=== PATIENT | male | born 1960 ===

== ENCOUNTER 2022-10-10 10:00 | Outpatient (AMB) | payer MEDICAID, SELFPAY ==
--- NOTE | 2022-10-10 10:03 | A.OFFVIS_ITS ---
Intake Vital Signs 10/10/22 10:05 Height 5 ft 11 in Weight 196 lb BMI 27.3 BP 156/76 H Blood Pressure Location Lt brachial Position Sitting Respiration 14 Pulse 60 Pulse Source Pulse Oximeter Pulse Oximetry (%) 98 Oxygen Delivery Method Room Air Intake Visit Reasons: Chronic Right Lower Back Pain Head And Neck Surgeon Required: Yes Head And Neck Surgeon Name: prefers son to translate Allergies metronidazole [From Flagyl] Allergy (Severe, Verified 10/10/22 10:07) Redness of Skin Medication List - Last Reconciled 10/10/22 by Tabby Haas LPN aspirin (Adult Aspirin Regimen) 81 mg PO DAILY cyanocobalamin-methylcobalamin 5,000 mcg/mL drps sublingual fenofibrate nanocrystallized 145 mg PO DAILY fluticasone propionate 110 mcg/actuation (Flovent HFA) 1 puff inhalation BID montelukast 10 mg PO BEDTIME rosuvastatin 5 mg PO DAILY sucralfate 1 g PO BID HPI Chronic Right Lower Back Pain HPI Details 61-year-old male presenting today for a new patient evaluation of chronic right lower back pain. The patient is a Urdu speaking male. His son, who interpreted for him, was present during the visit. The patient has a longstanding history of chronic back pain with prior surgery (in 2009) in [place]. Based on reported sounds like he underwent a left L4-5 laminectomy/diskectomy with resolution of his left-sided symptoms at the time. His current pain episode started about two months ago, and is localized to the right side. He rates his pain at 10/10 in intensity, which radiates down to the right leg. His pain aggravates with walking, twisting, and standing. The patient has difficulty walking and sitting down due to pain. The pain is worse in the morning. He has tried acetaminophen and NSAIDs for his symptoms in the past, with mild relief. The patient visited Dr. Melissa, who recommended conservative management with potential consideration of surgical intervention in the future. The patient declined the surgical option pending further workup of his cardiac status in setting of prior history of episodic bradycardia associated with shortness of breath. He had tried physical therapy here and in [facility] without any benefit. He denies any history of diabetes mellitus or renal diseases. He has a known allergy to IV contrast. He had not tried gabapentin in the past. He is taking supplemental vitamin B12 for neuropathic pain at this time. Over the past few months he endorses increasing difficulty in using his right lower extremity with progressively worsening pain symptoms. [facility] Medical History (Updated 10/10/22 @ 10:32 by Edgardo Dent MD) Chronic right-sided low back pain with right-sided sciatica Review of Systems Const All systems reviewed & are unremarkable except as noted in HPI and below Physical Exam Vital Signs: Last Vital Signs Pulse 60 10/10/22 10:05 Resp 14 10/10/22 10:05 BP 156/76 H 10/10/22 10:05 Pulse Ox 98 10/10/22 10:05 Oxygen Delivery Method Room Air 10/10/22 10:05 BMI result Body Mass Index 27.3 General: Appears afebrile. Alert and oriented. Mood and affect appropriate. Follows and participates in conversation appropriately. Respiratory effort is unlabored. Able to transition from sit to stand unassisted. Ambulates with bilaterally normal heel strike and toe off. He is able to stand and walk on his toes and heels. He is able to rise from a squatting position with difficulty. Results Reviewed Results Reviewed: 09/23/21: MR LUMBAR SPINE WO. Assessment & Plan Assessment & Plan (1) Lumbar spinal stenosis: Code(s): M48.061 - Spinal stenosis, lumbar region without neurogenic claudication Plan Ordered a Repeat MRI scan of the lumbar spine given worsening pain and right lower extremity associated with weakness. We will review the MRI after it is done to assess candidacy for potential injection versus surgical intervention. The patient will receive a call to schedule an appointment. A script was also provided to the patient. The address and contact detail were also provided to the patient. Prescribed gabapentin 300 mg to the patient for pain management. Take 1 capsule at night for 1 week, if well tolerated increase it to 2 pills at night for a week, if well tolerated increase it to 3 pills at night. A referral was provided to Dr. Lynch for GERD symptoms per patient request for an Uzbek speaking provider. Scribed for Dr. Dent by Agustin Ya, medical records analyst, on 10/10/2022. I, Dr. Dent, have personally reviewed and agree with the information entered by the scribe. Orders: Orders MR lumbar spine wo con Today M48.061 - Spinal stenosis, lumbar region without neurogenic claudication Referrals Gastroenterology Referral K21.9 - Gastro-esophageal reflux disease without esophagitis Medications: New gabapentin 300 mg PO TID 90 caps 0RF Coding Level of Care Code New Pt Level 4 (19761) Diagnoses Lumbar spinal stenosis M48.061
[2022-10-10 10:05] VITALS: BP 156/76; PULSE 60; RESP 14; O2SAT 98; BMI 27.3
== END 2022-10-10 10:51 | disposition home or self-care (01) ==
PROVIDERS: PCP Nurse Practitioner; Visit Provider Internal Medicine
DX: M48.061 Spinal stenosis, lumbar region without neurogenic claudication (principal)
CPT/HCPCS: 99204

== ENCOUNTER → 2022-10-10 10:00 | Outpatient (BNVA) | payer MEDICAID, SELFPAY | PROVIDERS: PCP Nurse Practitioner; Visit Provider Internal Medicine | DX: M48.061 Spinal stenosis, lumbar region without neurogenic claudication (principal) | CPT/HCPCS: 99202 ==

== ENCOUNTER 2022-11-08 14:50 | Outpatient (REF) | payer MEDICAID, SELFPAY ==
--- NOTE | ~2022-11-08 | XR_ITS ---
EXAMINATION: XR LUMBOSACRAL SPINE WITH OBLIQUES CLINICAL INFORMATION: Radiculopathy COMPARISON: None available. TECHNIQUE: 4 views FINDINGS: Mild 2 mm posterior subluxation of L4 with respect to L3 and L5. Bone alignment is otherwise normal. There is no instability on flexion-extension views. There is degenerative spondylosis at T12-L1, L3-L4 and L4-L5. There is degenerative disc disease at L4-L5. There is lower lumbar spine facet arthritis. No fracture or dislocation. Mild atherosclerotic disease. XR/XR lumbar spine 4V min IMPRESSION: Mild 2 mm posterior subluxation of L4 with respect to L3 and L5. Stable on flexion-extension views. Degenerative changes.
== END 2022-11-08 14:51 | disposition home or self-care (01) ==
LOC: HO.HOSX 14:50
PROVIDERS: PCP Nurse Practitioner; Referring Provider Internal Medicine; Visit Provider Physician Assistant
DX: M54.16 Radiculopathy, lumbar region (principal)
CPT/HCPCS: 72110; 99212

== ENCOUNTER 2022-11-08 14:50 | Outpatient (AMB) | payer MEDICAID, SELFPAY ==
--- NOTE | 2022-11-08 15:23 | A.SPINEOV_ITS ---
Intake Intake Visit Reasons: low back pain Intake Note: Mr. Arechiga is here today c/o low back pain. MRI done @ [place]/brought disc. 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 Arechiga is following up here in the office today. I saw him last year at [facility], and evaluated him for a right leg radiculopathy. At that time he had had a history of a previous L4-5 decompression done in [place] in 2009 but the surgery was aborted midway through for what sounds like some kind of anesthesia complication. Fortunately at that time he had enough relief of the severe left leg pain that he was able to get along fairly well until a few years ago when he started to develop right leg pain which goes down his leg into his outer calf and ankle. When we saw him last year the symptoms were reasonably manageable and given his history of problems during his other surgery we generally were trying to avoid any major intervention. Unfortunately his symptoms have progressed and now he is getting severe right-sided leg pain as before but is also experiencing fatigue in both legs with cramping. He has been through physical therapy, ibuprofen and Tylenol as well as methocarbamol muscle relaxers without any relief. His new MRI at [facility] done just about a month ago shows similar findings to the imaging done at [facility] a year ago with severe collapse of the L4-5 disc space with postsurgical changes with ongoing lateral recess stenosis on the right as well as moderate to severe stenosis at L3-4. Since the patient is presenting with worsening progressive claudicating symptoms right greater than left, Dr. Melissa and I discussed the option of him undergoing right-sided approach for bilateral L3-4 decompression as well as a right L4-5 decompression. The patient wishes to proceed. He does have a degree of back pain, and we had a lengthy discussion about the fact that our current plan would not address his back pain but given that the leg pains are the primary carry all driver of his disability that this would be the goal of the surgery. At my urging last year, he did get a cardiac workup because of the history of the issues during anesthesia and he tells me this was done at [facility] and the results were his stress test was negative. Pt was given risk and benefits of surgery including but not limited to infection, hematoma , nerve injury,durotomy, weakness,bowel/bladder injury, persistent pain, need for spinal fusion down the road as well as the option to c ontinue with conservative treatment and patient wishes to proceed with surgery. Pt is aware they should stop their motrin, aspirin 7 days prior to surgery. All questions were answered to the best of our ability. If there is anything about this patients medical history that we have overlooked or concerns you have about us proceeding with surgery we would appreciate any input you can offer. Total amount of time spent in this visit was 20 minutes in discussion of symptoms, lumbar imaging results and subsequent plan of care Darryl Melissa MD,PhD [facility] Orders: Orders XR lumbar spine 4V min Today M54.16 - Radiculopathy, lumbar region Coding Level of Care Code Est Pt Level 3 (33994) Diagnoses Lumbar radiculopathy, chronic M54.16
== END 2022-11-08 16:38 | disposition home or self-care (01) ==
PROVIDERS: PCP Nurse Practitioner; Referring Provider Internal Medicine; Visit Provider Physician Assistant
DX: M54.16 Radiculopathy, lumbar region (principal)
CPT/HCPCS: 99213

== ENCOUNTER 2022-12-15 07:47 | Day surgery (SDC) | payer MEDICAID, SELFPAY ==
--- NOTE | 2022-12-02 | ECG_ITS ---
Test Reason : preop Blood Pressure : / mmHG Vent. Rate : 059 BPM Atrial Rate : 059 BPM P-R Int : 178 ms QRS Dur : 094 ms QT Int : 386 ms P-R-T Axes : 029 027 013 degrees QTc Int : 382 ms Sinus bradycardia Otherwise normal ECG No previous ECGs available Referred By: Giovanna Narayanan Electronically Signed By:BEVERLEY KIRKPATRICK
[2022-12-02 13:09] VITALS: BP 130/82; PULSE 64; RESP 18; O2SAT 98; BMI 28.0
--- NOTE | 2022-12-02 13:23 | HO.ANESPROP2 ---
Documented by User: Giovanna Narayanan NP 12/05/22 13:40 HPI - Anesthesia Eval Consult details Narrative: 61yo M for Right sided approach Bilateral L3-4, Right L4-5 Laminectomy Lumbar Decompression No recent illness No CP Mild SOB, tx inhalers and fresh air Rght nasal passage chronic obstruction Cardiac cleared. Hx of SB / junctional rhythm seen on holter. No pacer at this time because short episodes with good recovery to normal HR. Pt anxious re: hx of low HR during previous surgery in [facility] resulting in aborting procedure partway through. Dr Garcia in to see pt, reassured. [facility] Active Problems Active Problems: All Active Problems (Updated 12/02/22 @ 12:40 by Rosalina Florian RN) Lumbar radiculopathy, chronic (Acute) GERD (gastroesophageal reflux disease) (Acute) Lumbar spinal stenosis (Acute) Past Medical History Medical History (Updated 12/05/22 @ 13:42 by Giovanna Narayanan NP) CAD (coronary artery disease) Back pain GERD (gastroesophageal reflux disease) Fatty liver Depression Numbness Habitual snoring Wheezing SOB (shortness of breath) Elevated cholesterol HTN (hypertension) Chronic right-sided low back pain with right-sided sciatica Family History Family history of problems with anesthesia: No Surgical History Surgical History (Updated 12/02/22 @ 12:48 by Rosalina Florian RN) Hx of eye surgery Hx of hemorrhoidectomy History of lumbosacral spine surgery History of Problems with Anesthesia: Yes (low HR with previous spine surgery (aborted)) Social History Social History Are you a primary healthcare representative to a significant other at home: No Do you presently have visiting nurse or other home services: No Patient Tobacco Use Status: Current everyday Tobacco user Tobacco use type: Cigarette Cigarette Packs Per Day: 1.0 Cigarettes Per Day: 20.0 Years Smoked: 40 Meds Allergies Allergy/AdvReac Type Severity Reaction Status Date / Time metronidazole [From Flagyl] Allergy Severe Redness of Verified 12/15/22 08:13 Skin Home Medications Medication Instructions Recorded Confirmed Last Taken Type aspirin 81 mg tablet,delayed 81 mg PO DAILY 10/10/22 12/15/22 12/09/22 History release (Adult Aspirin Regimen) fenofibrate nanocrystallized 145 145 mg PO BEDTIME 10/10/22 12/15/22 Unknown History mg tablet montelukast 10 mg tablet 10 mg PO BEDTIME 10/10/22 12/02/22 Unknown History rosuvastatin 5 mg tablet 5 mg PO BEDTIME 10/10/22 12/02/22 Unknown History budesonide-formoterol HFA 160 2 puff inhalation BID 12/02/22 12/15/22 Unknown History mcg-4.5 mcg/actuation aerosol inhaler (Symbicort) calcium carbonate 600 mg-vitamin 1 tab PO DAILY 12/02/22 12/15/22 Unknown History D3 10 mcg (400 unit) tablet esomeprazole magnesium 20 mg 20 mg PO DAILY 12/02/22 12/15/22 Unknown History tablet,delayed release fluticasone propionate 50 1 spray intranasal DAILY 12/02/22 12/15/22 Unknown History mcg/actuation nasal spray,suspension loratadine 10 mg tablet 10 mg PO DAILY PRN Allergy Symptoms 12/02/22 12/15/22 Unknown History losartan 25 mg tablet 25 mg PO DAILY 12/02/22 12/15/22 Unknown History mecobalamin (vitamin B12) 500 mcg 500 mcg PO TID 12/02/22 12/02/22 Unknown History chewable tablet sucralfate 1 gram tablet 1 g PO BID 12/02/22 12/02/22 Unknown History Exam Exam Date and Time: December 02, 2022 1323 Height,Weight and Vital Signs: Height 5 ft 11 in Weight 91.172 kg Last Vital Signs Pulse 64 12/02/22 13:09 Resp 18 12/02/22 13:09 BP 130/82 12/02/22 13:09 Pulse Ox 98 12/02/22 13:09 O2 Del Method Room Air 12/02/22 13:09 Pertinent Lab Results Pertinent Lab Results: Labs from outside facility 11/15/22 Na 138 K 4.4 Cl 105 Bicarb 23 Bun 16 Creat 1.1 Liver profile and TSH WNL WBC 5.5 Hgb 13.0 Hct 40.3 Plt 192 Narrative Narrative: EKG 08/2022 NSR @ 60 EKG 11/2022 Vent. Rate : 059 BPM Atrial Rate : 059 BPM P-R Int : 178 ms QRS Dur : 094 ms QT Int : 386 ms P-R-T Axes : 029 027 013 degrees QTc Int : 382 ms Sinus bradycardia Otherwise normal ECG No previous ECGs available Stress ECHO 09/2022 Patient showed a fair to average functional capacity without chest pain No ischemic ST segment changes No RWMA seen following stress No echo evidence of exercise induced myocardial ischemia 3 day holter Predominate SR Min HR 41, Max HR 112, Avg HR 63 SVT lasting 4 beats with max of 160 Short episode of Junctional Rhythm Rare PACs and PVCs No pauses or high degree AV block PFT 10/2022 Nml Airway Mallampati Class: I TM Dist: >3cm Neck ROM: Full Loose/Missing/Broken Teeth: No (crowned molars) Heart: RR, daysi Lungs: CTAB Assessment and Plan Assessment Anesthesia Assessment: Anesthesia Plan Discussed, Smoking Cess. Discussed and PAT Visit Final Anesthetic Review Family History of Problems with Anesthesia: No History of Problems with Anesthesia: Yes (low HR with previous spine surgery (aborted)) Documented by User: Desmond Gallo MD 12/15/22 18:27 [facility] Past Medical History Medical History (Updated 12/05/22 @ 13:42 by Giovanna Narayanan NP) CAD (coronary artery disease) Back pain GERD (gastroesophageal reflux disease) Fatty liver Depression Numbness Habitual snoring Wheezing SOB (shortness of breath) Elevated cholesterol HTN (hypertension) Chronic right-sided low back pain with right-sided sciatica Surgical History Surgical History (Updated 12/02/22 @ 12:48 by Rosalina Florian RN) Hx of eye surgery Hx of hemorrhoidectomy History of lumbosacral spine surgery Social History Social History Are you a primary healthcare representative to a significant other at home: No Do you presently have visiting nurse or other home services: No Patient Tobacco Use Status: Current everyday Tobacco user Tobacco use type: Cigarette Cigarette Packs Per Day: 1.0 Cigarettes Per Day: 20.0 Years Smoked: 40 Meds Allergies Allergy/AdvReac Type Severity Reaction Status Date / Time metronidazole [From Flagyl] Allergy Severe Redness of Verified 12/15/22 08:13 Skin Home Medications Medication Instructions Recorded Confirmed Last Taken Type aspirin 81 mg tablet,delayed 81 mg PO DAILY 10/10/22 12/15/22 12/09/22 History release (Adult Aspirin Regimen) fenofibrate nanocrystallized 145 145 mg PO BEDTIME 10/10/22 12/15/22 Unknown History mg tablet montelukast 10 mg tablet 10 mg PO BEDTIME 10/10/22 12/02/22 Unknown History rosuvastatin 5 mg tablet 5 mg PO BEDTIME 10/10/22 12/02/22 Unknown History budesonide-formoterol HFA 160 2 puff inhalation BID 12/02/22 12/15/22 Unknown History mcg-4.5 mcg/actuation aerosol inhaler (Symbicort) calcium carbonate 600 mg-vitamin 1 tab PO DAILY 12/02/22 12/15/22 Unknown History D3 10 mcg (400 unit) tablet esomeprazole magnesium 20 mg 20 mg PO DAILY 12/02/22 12/15/22 Unknown History tablet,delayed release fluticasone propionate 50 1 spray intranasal DAILY 12/02/22 12/15/22 Unknown History mcg/actuation nasal spray,suspension loratadine 10 mg tablet 10 mg PO DAILY PRN Allergy Symptoms 12/02/22 12/15/22 Unknown History losartan 25 mg tablet 25 mg PO DAILY 12/02/22 12/15/22 Unknown History mecobalamin (vitamin B12) 500 mcg 500 mcg PO TID 12/02/22 12/02/22 Unknown History chewable tablet sucralfate 1 gram tablet 1 g PO BID 12/02/22 12/02/22 Unknown History Exam Airway Mallampati Class: II Loose/Missing/Broken Teeth: Yes (crowned molars) and No Assessment and Plan Assessment Anesthesia Assessment: Chart Reviewed Final Anesthetic Review NPO: Yes ASA Class: III Final Preanesthetic Review: Meds/Allgs Chart Reviewed, Consent Obtained/Reviewed and Anes Risks/Benef Reviewed Patient Risk: Intermediate Procedure Risk: Intermediate Anesthetic Plan Anesthetic Plan: GA and Agree w/ Assess. and Plan Disposition: Standard PACU
[2022-12-15] VITALS (7 sets, daily range): BP systolic 131–161; BP diastolic 60–84; PULSE 62–80; RESP 15–20; TEMP 36.5–36.9; O2SAT 96–100
--- NOTE | ~2022-12-15 | FL_ITS ---
EXAMINATION: XR FLUOROSCOPY WITH IMAGES CLINICAL INFORMATION: Right-sided, bilateral L3-L4, right L4-L5. COMPARISON: None available. TECHNIQUE: Fluoroscopy Supervised By: Dr. Pablo Melissa. Fluoroscopy Time: 0.0 minutes. Cumulative Dose: 1.77 mGy. DAP: 0.330 Gycm2. Images: 1. FINDINGS: Image demonstrates marker placement posterior to the L4-L5 disc space level. FL/FL guidance in OR IMPRESSION: Fluoroscopy guidance for lumbar spine surgery
--- NOTE | 2022-12-15 07:00 | P.HPSUR_ITS ---
Pre-Procedural Eval Section A Date of Service: 12/15/22 Section B Chief Complaint: Radiculopathy, lumbar region Allergies: Allergies Allergy/AdvReac Type Severity Reaction Status Date / Time metronidazole [From Flagyl] Allergy Severe Redness of Verified 10/10/22 10:07 Skin Review of Systems Sugical H&P ROS: Negative: Constitution, Cardiovascular, Respiratory, Neurological, Psychiatric, Hem-Onc, Allergic/Immunologic, Gastrointestinal, Genitourinary, Musculoskeletal, Integumentary, Endocrine and Eyes/Ears/Nose/Throat Exam Surgical H&P Exam: Not Evaluated: HEENT, Not Evaluated: Heart, Not Evaluated: Lungs, Not Evaluated: Extremities, Not Evaluated: Abdomen, Not Evaluated: Skin and Not Evaluated: Neurological Plan Diagnosis/Plan: Unchanged I have reviewed the history and physical and performed a pertinent physical examination on my patient. No changes have occurred unless specified. Plan remains the same right-sided approach bilateral L3-4 laminectomy, right- sided L4-5 laminectomy. Time Spent With Patient Time: Total time managing care of this patient today __10__ minutes.
--- OUTSIDE RECORDS SUMMARY | 2022-12-15 07:49 | XMS_ITS | Continuity of Care Document ---
Author Name Unknown Organization [facility] Address [address] [place] [id number]- Care Team Providers Care Scientific Informatics Analyst Name Role Phone Donald Bar MD Primary Care Physician [phone] Encounter [facility] Date(s): 03/29/22 - 04/28/22 [facility] [address] [address]- Attending Physician: Italia Hubbard Admitting Physician: AdmItalia orlando Referring Physician: Stevie Ar8 Note * Event Display: MRI Spine, Non- BH Authored Date: Patient Care team information Care Team Personnel Name: Donald Bar MD Position: [facility] Outreach Member Role: PCP Address: Address: [address] [place] [address]- Care Team Related Persons Name: JOHNNA JUAN Name: BUCKY JUAN
--- OUTSIDE RECORDS SUMMARY | 2022-12-15 07:49 | XMS_ITS | Continuity of Care Document ---
Author Name Unknown Organization [facility] Address [address] [place] [id number]- Care Team Providers Care Psychological Operations Name Role Phone Donald Bar MD Primary Care Physician Encounter [facility] Date(s): 11/17/21 - 12/23/21 [facility] [address] [address] Attending Physician: Lucina Sawyer MD Admitting Physician: Lucina Sawyer MD Patient Care team information Personnel Name: Donald Bar MD Address: Address: [address] [place] [address]
--- OUTSIDE RECORDS SUMMARY | 2022-12-15 07:49 | XMS_ITS | Continuity of Care Document ---
Author Name Unknown Organization [facility] Address [address] [place] [id number]- Care Team Providers Care Program Planner Name Role Phone Donald Bar MD Primary Care Physician Encounter [facility] Date(s): 11/23/21 - 12/23/21 [facility] [address] [id number] Attending Physician: Admtr, Ar8 Admitting Physician: Admtr, Ar8 Referring Physician: Admtr, Ar8 Patient Care team information Personnel Name: Donald Bar MD Address: Address: [address] [place] [address]
--- OUTSIDE RECORDS SUMMARY | 2022-12-15 07:49 | XMS_ITS | Continuity of Care Document ---
Author Name Unknown Organization [facility] Address [address] [place] [id number] Care Team Providers Care Applications Instructor Name Role Phone Donald Bar MD Primary Care Physician [phone] Encounter [facility] Date(s): 07/20/21 - 08/19/21 [facility] [address] [address]- Attending Physician: Italia Hubbard Admitting Physician: Italia Hubbard Referring Physician: Italia Hubbard
[2022-12-15] MEDS: Lactated Ringers 1,000 ML 100 ML IVCONT (08:31)
--- NOTE | 2022-12-15 11:45 | W.PM.OPN ---
Operative Note Operative Note Date of Service: 12/15/22 Narrative: Preoperative Diagnosis: L3-4 and L4-5 spinal stenosis/lateral recess stenosis/neuro foraminal stenosis Operation: L3-4 bilateral Laminotomy, Partial facetectomy and foraminotomy; right L4-5 laminotomy, partial facetectomy and foraminotomy with use of microscope Consent Informed Consent was obtained for this operation. I have explained the nature, purpose and benefits of the operation. I have discussed the risks and benefit of the operation including possible complications or adverse events with patient/family. Alternative(s) were discussed with the patient with their relative benefits and risks as well as the consequences of not accepting the operation were included in obtaining consent. Surgeon: SUZANNA AMIN MD, PHD Procedure Assisted By: Darryl Veliz Pac] Description of Procedure this 61-year-old male underwent a previous L4-5 decompression in [place]. The surgery had to be aborted due to bradycardia according to the patient. Patient complains of bilateral leg pain and back pain with the MRI showing ongoing severe lateral recess stenosis L4-5 compressing the right L5 nerve root and moderate to severe L3-4 central spinal stenosis.The patient was offered a decompression. The procedure and complications were explained. The patient was consented. The patient was brought to the operating room and endotracheally intubated. The patient was turned in prone position on the Nas frame. Prep and drape was done followed by timeout. The Physician senior underwriting assistant provided access. A mid lumbar incision was made followed by release of the paravertebral muscle On the right side to expose the L3, L4 and L5 laminae and facet joints. An intraoperative x-ray was obtained to confirm the correct level. The microscope was brought in. I took over the procedure. The high-speed drill was used to do a right L3-4 laminotomy until flavum ligament was reached. a 2. Kerrison was used to expand the laminotomy near flush to the pedicles and to include a partial facetectomy. The flavum and was opened and resected with a 3. Kerrison to decompress the underlying thecal sac. A fair amount of epidural fat was encountered, which had to be removed before the dura became visible. The spinous process was undercut and the patient was turned contralaterally in order for me to decompress the contralateral side. More flavum ligamentum bone was removed to decompress the bilateral L4 nerve roots in the lateral recesses.A long nerve hook could be easily passed along the medial side of the pedicles as a sign of adequate decompression. Then attention was turned to the L4-5 interspace. A right L4 laminotomy was done. Flavum ligament was opened and resected. A layer of scar tissue was removed to expose the underlying dura. The L5 nerve root was identified and decompressed in the lateral recess. The compression of the nerve consisted of flavum ligament and scar tissue. In the end good decompression of the L5 nerve root was obtained.The microscope was removed. Hemostasis was done. The physician senior underwriting assistant close the Incision in 2 layers. Steri-Strips were used to approximate incision. An OpSite with Tegaderm was used to cover the incision. All sponge needle counts were correct. Patient was extubated and transported in stable is to recovery room. Anesthesia: General Estimated Blood Loss (ml): Minimal Complications: None Duration of Surgery: 90 Minutes Postoperative Plan: Discharge to home
--- NOTE | 2022-12-15 12:09 | PM.DS ---
DS: Providers Provider Date of Service: 12/15/22 Date of discharge: 12/15/22 Primary care physician: Mireya Lyn NP Admitting clinician: Pablo Melissa DS: Summary Time Spent with Patient Time attestation: Total time managing care of this patient today ____ minutes. Discharge coordination time: Less than 30 minutes Quality: Safe Use of Opioids Does Pt have an Active Cancer Diagnosis on the Problem List?: No Quality: Stroke Does the patient have a stroke diagnosis?: No Physical Exam Vital Signs: Vital Signs: Last Vital Signs Temp 98.4 F 12/15/22 08:10 Pulse 66 12/15/22 08:10 Resp 16 12/15/22 08:10 BP 161/84 H 12/15/22 08:10 Pulse Ox 97 12/15/22 08:10 O2 Del Method Room Air 12/15/22 08:10 BMI result Body Mass Index 28.0 DS: Data Data Completed and Pending Labs on day of discharge: Laboratory Results - last 24 hr 12/15/22 08:12 Blood Type B Positive Antibody Screen NEGATIVE Discharge Plan Discharge Patient Disposition: Home, Self-Care Referrals: Mireya Lyn NP [Primary Care Provider] - 1 Week Discharge Medications: New oxycodone 5 mg tablet 5 mg PO Q4H PRN (Reason: pain) Qty: 20 0RF Rx Instructions: Partial Fill upon patient request. Continued sucralfate 1 gram tablet 1 g PO BID fluticasone propionate 50 mcg/actuation [place],Suspension 1 spray INTRANASAL DAILY Rx Instructions: administer into each nostril loratadine 10 mg Tablet 10 mg PO DAILY PRN (Reason: Allergy Symptoms) calcium carbonate-vitamin D3 600 mg-10 mcg (400 unit) tablet 1 tab PO DAILY budesonide-formoterol [Symbicort] 160-4.5 mcg/actuation HFA aerosol inhaler 2 puff inhalation BID esomeprazole magnesium 20 mg Tablet,Delayed Release (Dr/Ec) 20 mg PO DAILY losartan 25 mg tablet 25 mg PO DAILY mecobalamin (vitamin B12) 500 mcg Tablet,Chewable 500 mcg PO TID fenofibrate nanocrystallized 145 mg tablet 145 mg PO BEDTIME rosuvastatin 5 mg tablet 5 mg PO BEDTIME montelukast 10 mg tablet 10 mg PO BEDTIME aspirin [Adult Aspirin Regimen] 81 mg tablet,delayed release (DR/EC) 81 mg PO DAILY Discharge Orders: Discharge Order (Routine); Ordered 12/15/22 Ordered By: Darryl Veliz Diet: Advance to usual diet Activity on Discharge: As tolerated Activity Restrictions/Additional Instructions: After your spinal surgery we ask you to observe the following restrictions/guidelines: Activity: It is normal to feel some discomfort as you increase your activity, but that will improve with time. We ask you avoid heavy lifting or acitivities that cause pain. As a general rule, 8lbs is a safe limit for lifting right after surgery. Walk as much as you feel comfortable but not to exhaustion. You will feel extra tired the first few days after surgery. Stay well hydrated. It is OK to walk up and down stairs You may return to driving when you are off narcotics (such as vicodin, oxycodone, dilaudid, etc), and you are back to normal functional capacity. If you have any concerns please check with office before driving. Return to work is specific to each patient and each surgery, so please speak with your doctor/PA at first follow up. Please bring paperwork such as FMLA at that time if you need it filled out. Medications: For optimum pain control, it is best to start with a combination of 500 mg of Tylenol every 4 hours with 600 mg of Motrin every 8 hours, and use narcotics as needed in between for breakthrough pain. We will give you a short supply of narcotics after surgery (usually one weeks worth). If you need more please call the office but do not use more than prescribed. You will need to give our office 48 hours notice if you need narcotics refilled and we do not fill narcotics on weekends or evenings. If you are on a narcotic, it is a good idea to take a stool softener such as colace or senna to avoid constipation If you take blood thinner such as aspirin, Plavix, Coumadin, Effient, Eliquis etc for conditions such as Afib, DVT, Pulmonary embolus, coronary disease, stents etc please speak with your surgeon about specific details as to when you can resume these medications. You can resume NSAIDs on post op day 1 (eg: Motrin, Naproxen, etc). Follow up: Please call the office, , after surgery to arrange a 3 week follow up for wound check. Wound Care: You may remove your dressing on the first day after surgery. You may leave open to air. Please do not remove the steri strips underneath. they will fall off on their own in one week. IT IS NORMAL FOR THE WOUND TO OOZE OR BE BLOODY FOR A FEW DAYS AFTER SURGERY. IF THIS HAPPENS JUST PLACE NEW DRESSING OVER IT TO AVOID STAINING CLOTHES. You may shower on post op day # 1 We ask that you do not let the water soak the wound. If it does get wet, just towel dry lightly. Please do not scrub your incision or place any type of chemical/ointment on the wound. No tub baths, pools or jacuzzis for one month. If you have any leaking or redness from your wound, or fevers, please call office
== END 2022-12-15 14:10 | disposition home or self-care (01) ==
PROVIDERS: PCP Nurse Practitioner; Visit Provider Neurological Surgery
PROC: (CPT 63047; principal; 2022-12-15 09:40)
DX: M48.061 Spinal stenosis, lumbar region without neurogenic claudication (principal); M54.16 Radiculopathy, lumbar region; M54.50 Low back pain, unspecified; G89.29 Other chronic pain; M79.661 Pain in right lower leg; R20.0 Anesthesia of skin; I25.10 Atherosclerotic heart disease of native coronary artery without angina pectoris; I10 Essential (primary) hypertension; R06.83 Snoring; R06.2 Wheezing; Z79.51 Long term (current) use of inhaled steroids; Z79.82 Long term (current) use of aspirin; Z79.899 Other long term (current) drug therapy; Z88.8 Allergy status to other drugs, medicaments and biological substances; F17.210 Nicotine dependence, cigarettes, uncomplicated
CPT/HCPCS: 63047; 63048; 86850; 86900; 86901; 93005; J0131; J0690; J1100; J1885; J2250; J2405; J3010

== ENCOUNTER → 2022-12-15 07:47 | Outpatient (BNV) | payer MEDICAID, SELFPAY | PROVIDERS: PCP Nurse Practitioner; Visit Provider Neurological Surgery | DX: M48.061 Spinal stenosis, lumbar region without neurogenic claudication (principal); M54.16 Radiculopathy, lumbar region | CPT/HCPCS: 63047; 63048; 99499 ==

== ENCOUNTER 2023-01-06 14:59 | Outpatient (AMB) | payer MEDICAID, SELFPAY ==
--- NOTE | 2023-01-06 15:09 | HO.SPINEOV ---
Intake Intake Visit Reasons: 1st post op Intake Note: Mr. Arechiga is here today for his 1st post op visit. Lead Principal Technical Architect Required: Yes Lead Principal Technical Architect Name: Son Allergies metronidazole [From Flagyl] Allergy (Severe, Verified 12/15/22 08:13) Redness of Skin Assessment & Plan Assessment & Plan (1) Status post lumbar spine surgery for decompression of spinal cord: Code(s): Z98.890 - Other specified postprocedural states Plan Procedure: L3-4 bilateral Laminotomy; right L4-5 laminotomy Mary comes in today for his 1st postoperative visit. He reports he is very satisfied with the surgery and feels much better than he did preoperatively. The patient reports he is up walking around and completing the majority of his ADLs. He does report that he still has some nonspecific tingling of his left foot, accompanied by some aches in his right thigh. he does report good relief with jvay-vre-ihnaffa pain medication. He inquired about return to work guidelines, and stated that he would like to go back to [employer] [facility] [employer] [facility] [employer] as this is what he had done previously. 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 Mobility is intact. Sensation grossly intact. Patient is able to ambulate well, rises from a seated position without difficulty. Incision site is closed, well healing, with no signs of drainage. We will follow-up with the patient in 6 weeks for his 2nd postoperative visit. Percy Melissa MD,PhD [facility] Coding Level of Care Code Global (28167) Diagnoses Status post lumbar spine surgery for decompression of spinal cord Z98.890
== END 2023-01-06 15:38 | disposition home or self-care (01) ==
PROVIDERS: PCP Nurse Practitioner; Visit Provider Physician Assistant
DX: Z98.890 Other specified postprocedural states (principal)
CPT/HCPCS: 99024

== ENCOUNTER → 2023-01-06 14:59 | Outpatient (BNVA) | payer MEDICAID, SELFPAY | PROVIDERS: PCP Nurse Practitioner; Visit Provider Physician Assistant ==

== ENCOUNTER 2023-01-09 10:22 | Outpatient (AMB) | payer MEDICAID, SELFPAY ==
--- NOTE | 2023-01-09 10:30 | A.OFFVIS_ITS ---
Intake Vital Signs 01/09/23 10:40 Height 5 ft 9 in Weight 204 lb BMI 30.1 BP 129/60 Blood Pressure Location Lt brachial Position Sitting Pulse 66 Intake Visit Reasons: Gastroesophageal reflux disease (GERD) Intake Note: Patient new consult for GERD. Patient cc: GERD with burning sensation, lower abdominal pain, constipation on and off with any meats, and bloody hemorrhoids. Patient is been dx with Hpylori infection. Emt P Required: Yes Accompanied by: Son Allergies metronidazole [From Flagyl] Allergy (Severe, Verified 01/09/23 10:29) Redness of Skin Medication List - Last Reconciled 01/09/23 by Rachel Gee PA-C aspirin (Adult Aspirin Regimen) 81 mg PO DAILY budesonide-formoterol 160-4.5 mcg/actuation (Symbicort) 2 puffs inhalation BID calcium carbonate-vitamin D3 600 mg-10 mcg (400 unit) 1 tab PO DAILY esomeprazole magnesium 20 mg PO DAILY fenofibrate nanocrystallized 145 mg PO BEDTIME fluticasone propionate 50 mcg/actuation 1 spray intranasal DAILY loratadine 10 mg PO DAILY PRN losartan 25 mg PO DAILY mecobalamin (vitamin B12) 500 mcg PO TID montelukast 10 mg PO BEDTIME oxycodone 5 mg PO Q4H PRN rosuvastatin 5 mg PO BEDTIME sucralfate 1 g PO BID HPI HPI Comments History of Present Illness Details 62-year-old male referred with GERD- he says he has a long hx of H.pylori- treated a few years ago- He has waterbrash- nexium -fair control the acid- just started sucralfate is very beneficial. Appetite is good Bowels not consistent- He has had a colonoscopy about 20 years ago. He sees cardiology [facility] is not having any cardiac issues- occasional bradycardia Recent back surgery- did very well- His adult son-as present assists with his history/ interprets [facility], [facility] Medical History (Updated 01/09/23 @ 13:29 by Rachel Gee PA-C) Helicobacter pylori (H. pylori) CAD (coronary artery disease) Back pain GERD (gastroesophageal reflux disease) Fatty liver Depression Numbness Habitual snoring Wheezing SOB (shortness of breath) Elevated cholesterol HTN (hypertension) Chronic right-sided low back pain with right-sided sciatica Surgical History (Updated 01/09/23 @ 10:31 by Debbie Nguyen) History of back surgery Hx of eye surgery Hx of hemorrhoidectomy History of lumbosacral spine surgery Social History Are you a primary memory care director to a significant other at home: No Do you presently have visiting nurse or other home services: No Patient Tobacco Use Status: Current everyday Tobacco user Tobacco use type: Cigarette Cigarette Packs Per Day: 1.0 Cigarettes Per Day: 20.0 Years Smoked: 40 Review of Systems Const All systems reviewed & are unremarkable except as noted in HPI and below ENT Denies dizziness Card Denies chest pain and Denies dyspnea Resp Denies dyspnea GI Denies abdominal pain, Reports constipation, Reports heartburn, Denies diarrhea, Denies nausea and Denies vomiting Neuro Denies dizziness Physical Exam Vital Signs: Last Vital Signs Pulse 66 01/09/23 10:40 BP 129/60 01/09/23 10:40 BMI result Body Mass Index 30.1 Const General: cooperative, healthy appearing, comfortable and no acute distress Orientation/consciousness: patient oriented x3 Limitations: language barrier Eyes Sclerae: sclerae normal Resp Effort & Inspection: normal respiratory effort and able to speak in complete sentences Auscultation: clear to auscultation bilaterally, no rales, no rhonchi and no wheezes Cardio Rate: regular rate Rhythm: regular rhythm Heart sounds: S1 normal heart sound present, S2 normal heart sound present and no murmurs GI Palpation (GI): Soft to palpation and nontender Auscultation: normal bowel sounds Skin General skin exam: no rashes or lesions noted Neuro General: patient oriented x3 Extrem General: Yes full ROM Psych Appearance: grossly normal and well kempt Mental Status: mental status grossly normal Speech and movement: Normal speech and movement present and Clear speech present Affect: normal affect Attitude: cooperative Thought process: Normal thought process present Thought content: Normal thought content present Insight: Good insight present (Psych) Judgement: Good judgement present (Psych) Assessment & Plan Assessment & Plan (1) GERD (gastroesophageal reflux disease): Comment: Very pleasant gent-persistent GERD recurrent H pylori Code(s): K21.9 - Gastro-esophageal reflux disease without esophagitis Plan: stop nexium increrase sucralfate- QID x 2 weeks- HP stool antigen (2) Helicobacter pylori (H. pylori): Code(s): A04.8 - Other specified bacterial intestinal infections Plan: stop nexium increrase sucralfate- QID x 2 weeks- HP stool antigen-in 2 weeks if positive will treat (3) Change in consistency of stool: Code(s): R19.5 - Other fecal abnormalities Plan EGD-C&S( recurrent H.pylori-) and screening colonoscopy- with Dr.. CARLTON- prefer male- Anesthesia consult- cardiac hx unclear- Orders: Orders H pylori Ag Stool Today A04.8 - Other specified bacterial intestinal infections Medications: New calcium polycarbophil (Fiber Laxative (calcium polycarbophil)) 1,250 mg (2 x 625 mg) PO DAILY 30 days 60 tabs 3RF sucralfate 1 g PO QIDACHS 21 days 90 tabs 0RF Patient Instructions: Lucille 62-year-old male referred with persistent reflux/water brash recurrent H pylori stop nexium increrase sucralfate- QID x 2 weeks- HP stool antigen-in 2 weeks if positive will treat Was scheduled for EGD colonoscopy-up working on to April will see him back prior to procedures. His son prefers to interpret for him. There are no major barriers to understanding identify Will see him back in follow-up prior to procedures to parviz. Appreciate the opportunity assist in [facility] [place] Coding Level of Care Code New Pt Level 4 (25513) Diagnoses GERD (gastroesophageal reflux disease) K21.9 Helicobacter pylori (H. pylori) A04.8 Change in consistency of stool R19.5 Time Spent (min) 40 Comment Son interprets
[2023-01-09 10:40] VITALS: BP 129/60; PULSE 66; BMI 30.1
== END 2023-01-09 11:23 | disposition home or self-care (01) ==
PROVIDERS: PCP Nurse Practitioner; Visit Provider Physician Assistant
DX: K21.9 Gastro-esophageal reflux disease without esophagitis (principal); A04.8 Other specified bacterial intestinal infections; R19.5 Other fecal abnormalities
CPT/HCPCS: 99204

== ENCOUNTER → 2023-01-09 10:22 | Outpatient (BNVA) | payer MEDICAID, SELFPAY | PROVIDERS: PCP Nurse Practitioner; Visit Provider Physician Assistant | DX: K21.9 Gastro-esophageal reflux disease without esophagitis (principal); A04.8 Other specified bacterial intestinal infections; R19.5 Other fecal abnormalities | CPT/HCPCS: 99212 ==

== ENCOUNTER 2023-01-30 09:19 | Outpatient (REF) | payer MEDICAID, SELFPAY | END 2023-01-30 09:20 | disposition home or self-care (01) | LOC: HO.LNP 09:19 | PROVIDERS: Visit Provider Physician Assistant | DX: A04.8 Other specified bacterial intestinal infections (principal) | CPT/HCPCS: 87338 ==

== ENCOUNTER 2023-01-31 13:38 | Outpatient (AMB) | payer MEDICAID, SELFPAY ==
--- NOTE | 2023-01-31 13:41 | HO.SPINEOV ---
Intake Intake Visit Reasons: sx 12/15 having pain Intake Note: Mr. Arechiga is here today c/o recurrent pain. Relish Blender Required: No Allergies metronidazole [From Flagyl] Allergy (Severe, Verified 01/09/23 10:29) Redness of Skin Assessment & Plan Assessment & Plan (1) Lumbar spinal stenosis: Code(s): M48.061 - Spinal stenosis, lumbar region without neurogenic claudication Plan: Dear colleague, On 01/31/2023, I saw for 2nd postoperative visit Mary Arechiga. He underwent a bilateral L3-4 lumbar decompression and right L4-5 decompression and foraminotomy. For the 1st month he was doing well but gradually the pain is returning into his right leg. He points to his right cheek and the outside of his ankle. He states that the pain is severe. This is the same pain as he had preoperatively. Uzvg-zuw-psoeqew medication is not providing him relief. On exam he looks very comfortable. He is able to move around without difficulties. Straight leg raise is negative. No motor or sensory deficits. A dynamic lumbar x-ray obtained today shows no signs of instability. The severe degenerative disc disease L4-5 is again demonstrated. In summary, this patient status post lumbar decompression for chronic lumbar radiculopathy. He states that the pain is returning after a short period of relief. I wrote him a small script of 20 tablets oxycodone 2 times a day without refill and will re-evaluate him in 3 weeks. An MRI will be ordered if the pain is not regressing. Pablo Melissa MD, PhD Spine Fellowship Trained Neurosurgeon Director, [facility] Orders: Orders XR lumbar spine 4V min Today M48.061 - Spinal stenosis, lumbar region without neurogenic claudication Medications: New oxycodone 5 mg PO BID 20 tabs 0RF Coding Level of Care Code Global (58671) Diagnoses Lumbar spinal stenosis M48.061
== END 2023-01-31 13:53 | disposition home or self-care (01) ==
PROVIDERS: PCP Nurse Practitioner; Visit Provider Neurological Surgery
DX: M48.061 Spinal stenosis, lumbar region without neurogenic claudication (principal)
CPT/HCPCS: 99024

== ENCOUNTER 2023-01-31 13:38 | Outpatient (REF) | payer MEDICAID, SELFPAY ==
--- NOTE | ~2023-01-31 | XR_ITS ---
EXAMINATION: XR LUMBOSACRAL SPINE CLINICAL INFORMATION: Reason for Exam M48.061 - Spinal stenosis, lumbar region without neurogenic claudication COMPARISON: Lumbar spine radiographs 11/08/2022 TECHNIQUE: 4 views of the lumbar spine FINDINGS: 5 nonrib-bearing lumbar-type vertebral bodies. Of note there is a diminutive right T12 rib and absent left T12 rib. Vertebral body heights are maintained. Minimal grade 1 anterolisthesis of L3 on L4 unchanged. No instability on flexion extension views. Multilevel degenerative disc disease worse at L4-L5 where there is advanced loss of disc space height and facet arthropathy. Paravertebral soft tissues are unremarkable. XR/XR lumbar spine 4V min IMPRESSION: 1. Minimal grade 1 anterolisthesis of L3 on L4 unchanged. No instability on flexion extension views. 2. Multilevel degenerative disc disease worse at L4-L5 where there is advanced loss of disc space height and facet arthropathy. 3. Of note there is a diminutive right T12 rib and absent left T12 rib, with 5 additional nonrib-bearing lumbar-type vertebral bodies.
== END 2023-01-31 13:39 | disposition home or self-care (01) ==
LOC: HO.HOSX 13:38
PROVIDERS: PCP Nurse Practitioner; Visit Provider Neurological Surgery
DX: M48.061 Spinal stenosis, lumbar region without neurogenic claudication (principal)
CPT/HCPCS: 72110

== ENCOUNTER 2023-02-22 13:26 | Outpatient (AMB) | payer MEDICAID, SELFPAY ==
--- NOTE | 2023-02-22 13:41 | HO.SPINEOV ---
Intake Intake Visit Reasons: 2nd post op Intake Note: Mr. Arechiga is here today for his 2nd post-op visit. Tube Washer Required: Yes Allergies metronidazole [From Flagyl] Allergy (Severe, Verified 01/09/23 10:29) Redness of Skin Assessment & Plan Assessment & Plan (1) Status post lumbar spine surgery for decompression of spinal cord: Code(s): Z98.890 - Other specified postprocedural states (2) Lumbar radiculopathy, chronic: Code(s): M54.16 - Radiculopathy, lumbar region Plan Dear colleague, On 02/22/2023, I saw for a 2nd postoperative visit Mary Arechiga. He underwent an L3-4 bilateral decompression and right L4-5 decompression. His right lumbar radiculopathy improved significantly. He still complains of her pain on the lateral side of his ankle and buttocks in the morning that improves during the day. He is scheduled to undergo a new MRI in March. On exam, he looks comfortable. Straight leg raise is negative. No neurological deficits. In summary, the patient continues to complain of residual radiculopathy. I explained to him that a final treatment would entail a lumbar fusion L4-5 with the understanding that even this final surgery may not improve his radiculopathy. He will return to my clinic in 3 months to assess his clinical situation and finalize the plan. I spent 30 minutes in this consult to review imaging and discussing plan of care. Pablo Melissa MD, PhD Spine Fellowship Trained Neurosurgeon Director, [facility] [place] [facility] Coding Level of Care Code Global (47206) Diagnoses Status post lumbar spine surgery for decompression of spinal cord Z98.890 Lumbar radiculopathy, chronic M54.16
== END 2023-02-22 14:21 | disposition home or self-care (01) ==
PROVIDERS: PCP Nurse Practitioner; Visit Provider Neurological Surgery
DX: Z98.890 Other specified postprocedural states (principal); M54.16 Radiculopathy, lumbar region
CPT/HCPCS: 99024

== ENCOUNTER → 2023-02-22 13:26 | Outpatient (BNVA) | payer MEDICAID, SELFPAY | PROVIDERS: PCP Nurse Practitioner; Visit Provider Neurological Surgery | DX: Z47.89 Encounter for other orthopedic aftercare (principal); M54.16 Radiculopathy, lumbar region; Z98.890 Other specified postprocedural states | CPT/HCPCS: 99212 ==

== ENCOUNTER 2023-03-09 09:34 | Outpatient (REF) | payer MEDICAID, SELFPAY | END 2023-03-09 09:35 | disposition home or self-care (01) | LOC: HO.MRI 09:34 | PROVIDERS: PCP Nurse Practitioner; Visit Provider Internal Medicine | DX: Z13.89 Encounter for screening for other disorder (principal) ==

== ENCOUNTER 2023-03-13 14:47 | Outpatient (AMB) | payer MEDICAID, SELFPAY ==
--- NOTE | 2023-03-13 14:54 | MHC.OFFVIS ---
Intake Intake Visit Reasons: 2 month follow up GERD Intake Note: Patient follow up for GERD and stool results. Patient cc: acid reflex with burning sensation, abdominal pain with bloating, and constipation with some blood. Teasel Setter Required: No Accompanied by: Son Allergies metronidazole [From Flagyl] Allergy (Severe, Verified 01/09/23 10:29) Redness of Skin Medication List - Last Reconciled 03/13/23 by Rachel Gee PA-C aspirin (Adult Aspirin Regimen) 81 mg PO DAILY budesonide-formoterol 160-4.5 mcg/actuation (Symbicort) 2 puffs inhalation BID calcium carbonate-vitamin D3 600 mg-10 mcg (400 unit) 1 tab PO DAILY calcium polycarbophil (Fiber Laxative (calcium polycarbophil)) 1,250 mg (2 x 625 mg) PO DAILY 30 days esomeprazole magnesium 20 mg PO DAILY fenofibrate nanocrystallized 145 mg PO BEDTIME fluticasone propionate 50 mcg/actuation 1 spray intranasal DAILY loratadine 10 mg PO DAILY PRN losartan 25 mg PO DAILY mecobalamin (vitamin B12) 500 mcg PO TID montelukast 10 mg PO BEDTIME oxycodone 5 mg PO Q4H PRN oxycodone 5 mg PO BID pregabalin 75 mg PO BEDTIME rosuvastatin 5 mg PO BEDTIME tramadol 50 mg PO DAILY HPI HPI Comments History of Present Illness Details Accompanied by his adult son who speaks/interprets for him A 62 y/o male here for f/u- tested posirive H.pylori- completed 2 weeks antibx therapy- him yesterday. he feels better-however is now taking esomeprazole twice daily for heartburn= he has been treated multiple times-as well as other family members Apparently a are positive from time to time. Feels bloating- eats lentils He is requesting medication for anxiety, due to his neck worried about his health He denies nausea, vomiting, hematemesis, hematochezia fever chills Appetite is very good No issue with his bowel No chest pain headaches or dizzy He does admit to anxiety- [facility] Medical History (Updated 01/09/23 @ 13:29 by Rachel Gee PA-C) Helicobacter pylori (H. pylori) CAD (coronary artery disease) Back pain GERD (gastroesophageal reflux disease) Fatty liver Depression Numbness Habitual snoring Wheezing SOB (shortness of breath) Elevated cholesterol HTN (hypertension) Chronic right-sided low back pain with right-sided sciatica Surgical History History of back surgery Hx of eye surgery Hx of hemorrhoidectomy History of lumbosacral spine surgery Social History Are you a primary director of medicare to a significant other at home: No Do you presently have visiting nurse or other home services: No Patient Tobacco Use Status: Current everyday Tobacco user Tobacco use type: Cigarette Cigarette Packs Per Day: 1.0 Cigarettes Per Day: 20.0 Years Smoked: 40 Review of Systems Const All systems reviewed & are unremarkable except as noted in HPI and below Card Denies chest pain and Denies dyspnea Resp Denies dyspnea GI Denies abdominal pain, Denies hematochezia, Denies change in bowel habits, Reports heartburn, Denies nausea and Denies vomiting Psych Reports anxiety Physical Exam Const General: cooperative, healthy appearing, comfortable and no acute distress Orientation/consciousness: patient oriented x3 Limitations: language barrier Eyes Sclerae: sclerae normal Resp Effort & Inspection: normal respiratory effort and able to speak in complete sentences Skin General skin exam: no rashes or lesions noted Neuro General: patient oriented x3 Extrem General: Yes full ROM Psych Appearance: grossly normal and well kempt Mental Status: mental status grossly normal Speech and movement: Clear speech present Affect: Labile affect present Attitude: cooperative Thought content: Normal thought content present Assessment & Plan Assessment & Plan (1) Helicobacter pylori (H. pylori): Code(s): A04.8 - Other specified bacterial intestinal infections (2) GERD (gastroesophageal reflux disease): Comment: Very pleasant gent-persistent GERD recurrent H pylori Code(s): K21.9 - Gastro-esophageal reflux disease without esophagitis Plan: Awaiting EGD (3) Change in consistency of stool: Code(s): R19.5 - Other fecal abnormalities Plan: Maintain high-fiber diet Plan EGD/ colon- with Dr. MAGALLANES- requested per [phone]- son Recurrent HPcult/ sensitivity- Orders: Orders EGD/[facility] Combo - GI Use Only 03/13/23 A04.8 - Other specified bacterial intestinal infections, K21.9 - Gastro-esophageal reflux disease without esophagitis, R19.5 - Other fecal abnormalities Medications: New bisacodyl (Dulcolax (bisacodyl)) Day before procedure, prep day Take 4 tablets by mouth upon awakening followed by large glass of water 20 mg (4 x 5 mg) PO ONCE 1 day 4 tabs 0RF colonoscopy prep Z12.11 - Encounter for screening for malignant neoplasm of colon esomeprazole magnesium 20 mg PO BID 30 days 60 caps 5RF polyethylene glycol 3350 (Miralax) Take as directed by mouth the day before your procedure. 238 grams PO ONCE 1 day PRN 238 grams 0RF laxative effect esomeprazole magnesium 20 mg PO BID 90 days 180 caps 2RF Changed From calcium polycarbophil (Fiber Laxative (calcium polycarbophil)) 1,250 mg (2 x 625 mg) PO DAILY 30 days 60 tabs 3RF To calcium polycarbophil (Fiber Laxative (calcium polycarbophil)) 1,250 mg (2 x 625 mg) PO DAILY 90 days 180 tabs 2RF Refilled calcium polycarbophil (Fiber Laxative (calcium polycarbophil)) 1,250 mg (2 x 625 mg) PO DAILY 30 days 60 tabs 3RF Patient Instructions: A 62 year or her H pylori a presents today for follow-up his son is present He has just completed 2 week course of antibiotics, currently he esomeprazole b.i.d. with fairly good coverage. As we have refer filled prescription We discussed stay anxiety and he son will follow-up with PCP for further evaluation Rediscussed EGD colonoscopy, indication rare risks as well as prep reviewed literature given They have requested Dr. Lynch- Coding Level of Care Code Est Pt Level 3 (56933) Diagnoses Helicobacter pylori (H. pylori) A04.8 GERD (gastroesophageal reflux disease) K21.9 Change in consistency of stool R19.5 Time Spent (min) 30
== END 2023-03-13 15:54 | disposition home or self-care (01) ==
PROVIDERS: PCP Nurse Practitioner; Visit Provider Physician Assistant
DX: A04.8 Other specified bacterial intestinal infections (principal); K21.9 Gastro-esophageal reflux disease without esophagitis; R19.5 Other fecal abnormalities
CPT/HCPCS: 99213

== ENCOUNTER → 2023-03-13 14:47 | Outpatient (BNVA) | payer MEDICAID, SELFPAY | PROVIDERS: PCP Nurse Practitioner; Visit Provider Physician Assistant | DX: A04.8 Other specified bacterial intestinal infections (principal); K21.9 Gastro-esophageal reflux disease without esophagitis; R19.5 Other fecal abnormalities | CPT/HCPCS: 99212 ==

== ENCOUNTER 2023-05-24 14:19 | Outpatient (AMB) | payer MEDICAID, SELFPAY ==
--- NOTE | 2023-05-24 15:22 | A.SPINEOV_ITS ---
Intake Intake Visit Reasons: 3 month follow up Intake Note: Mr. Arechiga is here today for 3 month F/u. 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 He is status post lumbar deco mpression from right lumbar radiculopathy. He is doing very well. He denies significant right leg pain. He occasionally has mild central back pain. A new MRI shows again the L4-5 degenerative disc disease but no foraminal stenosis or severe central stenosis. Therefore no additional surgery is required at this time. He will return to visit me if any changes in his clinical symptoms occur. I spent 20 minutes in his consult reviewing imaging and discussing plan of care. Thank you for the referral. Pablo Melissa MD, PhD Spine Fellowship Trained Neurosurgeon Director, [facility] Coding Level of Care Code Est Pt Level 3 (97819) Diagnoses Status post lumbar spine surgery for decompression of spinal cord Z98.890
== END 2023-05-24 15:51 | disposition home or self-care (01) ==
PROVIDERS: PCP Nurse Practitioner; Visit Provider Neurological Surgery
DX: Z98.890 Other specified postprocedural states (principal)
CPT/HCPCS: 99213

== ENCOUNTER → 2023-05-24 14:19 | Outpatient (BNVA) | payer MEDICAID, SELFPAY | PROVIDERS: PCP Nurse Practitioner; Visit Provider Neurological Surgery | DX: Z98.890 Other specified postprocedural states (principal) | CPT/HCPCS: 99212 ==

== ENCOUNTER 2023-07-17 09:24 | Outpatient (REF) | payer MEDICAID, SELFPAY ==
[2023-07-17 12:56] LABS: Erythrocyte Sedimentation Rate 2 MM/HR (0-15)
[2023-07-19 14:44] LABS: CRP High Sensitivity 0.8 mg/L
== END 2023-07-17 09:25 | disposition home or self-care (01) ==
LOC: HO.LAB 09:24
PROVIDERS: PCP Nurse Practitioner; Visit Provider Internal Medicine
DX: M54.9 Dorsalgia, unspecified (principal)
CPT/HCPCS: 36415; 85652; 86141; 99212

== ENCOUNTER 2023-07-17 09:24 | Outpatient (AMB) | payer MEDICAID, SELFPAY ==
--- NOTE | 2023-07-17 09:51 | A.OFFVIS_ITS ---
Vital Signs 3 07/17/23 09:52 Height 5 ft 9 in BP 145/67 H Blood Pressure Location Lt brachial Position Sitting Respiration 14 Pulse 67 Pulse Source Pulse Oximeter Pulse Oximetry (%) 97 Oxygen Delivery Method Room Air Intake Visit Reasons: CHRONIC PAIN/OK PER DR. DENT Allergies metronidazole [From Flagyl] Allergy (Severe, Verified 07/17/23 09:56) Redness of Skin Medication List - Last Reconciled 07/17/23 by Tabby Haas LPN aspirin (Adult Aspirin Regimen) 81 mg PO DAILY bisacodyl (Dulcolax (bisacodyl)) 20 mg (4 x 5 mg) PO ONCE 1 day budesonide-formoterol 160-4.5 mcg/actuation (Symbicort) 2 puffs inhalation BID calcium carbonate-vitamin D3 600 mg-10 mcg (400 unit) 1 tab PO DAILY calcium polycarbophil (Fiber Laxative (calcium polycarbophil)) 1,250 mg (2 x 625 mg) PO DAILY 90 days esomeprazole magnesium 20 mg PO BID 90 days fenofibrate nanocrystallized 145 mg PO BEDTIME fluticasone propionate 50 mcg/actuation 1 spray intranasal DAILY loratadine 10 mg PO DAILY PRN lorazepam 1 mg PO DAILY PRN losartan 25 mg PO DAILY montelukast 10 mg PO BEDTIME oxycodone 5 mg PO Q4H PRN oxycodone 5 mg PO BID polyethylene glycol 3350 (Miralax) 238 grams PO ONCE 1 day polyethylene glycol 3350 (Miralax) 238 grams PO ONCE PRN 1 day pregabalin 75 mg PO BEDTIME rosuvastatin 5 mg PO BEDTIME tramadol 50 mg PO DAILY HPI HPI CHRONIC PAIN/OK PER DR. DENT: Details: 62-year-old male who presents today to the office for chronic pain. He underwent an L3-4 bilateral decompression and a right L4-5 decompression. The patient reports mild back pain and constant bilateral leg pain. He states that his pain was improved and stable after the back surgery in [place] in the past. His current symptoms started about three years ago. He also saw orthopedic surgeon for the cyst and had an injection. He had an MRI scan of the back which was reviewed today. The pain is worse in the morning after waking up. He had ASO titer test in past when he was in [place]. [facility] Medical History (Updated 07/17/23 @ 12:32 by Edgardo Dent MD) Helicobacter pylori (H. pylori) CAD (coronary artery disease) Back pain GERD (gastroesophageal reflux disease) Fatty liver Depression Numbness Habitual snoring Wheezing SOB (shortness of breath) Elevated cholesterol HTN (hypertension) Chronic right-sided low back pain with right-sided sciatica Surgical History History of back surgery Hx of eye surgery Hx of hemorrhoidectomy History of lumbosacral spine surgery Social History Are you a primary respiratory care faculty to a significant other at home: No Do you presently have visiting nurse or other home services: No Patient Tobacco Use Status: Current everyday Tobacco user Tobacco use type: Cigarette Cigarette Packs Per Day: 1.0 Cigarettes Per Day: 20.0 Years Smoked: 40 Review of Systems Const All systems reviewed & are unremarkable except as noted in HPI and below Physical Exam Vital Signs: Last Vital Signs Pulse 67 07/17/23 09:52 Resp 14 07/17/23 09:52 BP 145/67 H 07/17/23 09:52 Pulse Ox 97 07/17/23 09:52 Oxygen Delivery Method Room Air 07/17/23 09:52 General: Appears afebrile. Alert and oriented. Mood and affect appropriate. Follows and participates in conversation appropriately. Respiratory effort is unlabored. Able to transition from sit to stand unassisted. Ambulates with bilaterally normal heel strike and toe off. Lumbar range of motion does not reproduce pain. There is tenderness overlying the right sacroiliac joint. Sacroiliac joint pain is elicited with certain provocation maneuvers. Stretching and manipulation of the sacroiliac joint also helps relief his right sacroiliac pain. Results Reviewed Results Reviewed: 05/07/23: MR LUMBAR SPINE WO CON Assessment & Plan Assessment & Plan (1) Back pain: Code(s): M54.9 - Dorsalgia, unspecified Category: Medical (2) Sacroiliac joint dysfunction: Code(s): M53.3 - Sacrococcygeal disorders, not elsewhere classified Category: Medical (3) Status post lumbar spine surgery for decompression of spinal cord: Code(s): Z98.890 - Other specified postprocedural states Category: Medical Plan 62-year-old male with history of prior L3-4 decompression and L4 laminotomy. He continues to have right lower extremity symptoms. His most bothersome symptoms are at the right buttock that are worst in the morning when he 1st wakes up. Symptoms appear to be consistent mostly with right sacroiliac joint dysfunction. Right lumbar radiculopathy continues to be on the differential. Will schedule him for a right diagnostic SIJ injection. Discussed the risks and benefits of the procedure with the patient in detail. All questions were answered. The patient is on board with the plan. If the right SI joint injection is nondiagnostic, we can consider an EMG study to further assess for radiculopathy source. Patient has a prior history of elevated inflammatory markers and he is concerned if his joint pain issues might be secondary to an inflammatory condition. I ordered ESR and CRP as baseline tests for screening. Justification for interventional therapy: ? Patient with average pain > 6/10 ? Patient has exhausted conservative therapy ? Patient continues to be engaged in a home exercise program . Patient has a good understanding of their pain condition and has appropriate mental and social support More than 40 minutes were spent in counseling, review of clinical history and images and documentation of this visit. Scribed for Dr. Dent by Agustin Ya, medical laboratory technician, on 07/17/2023. I, Dr. Dent, have personally reviewed and agree with the information entered by the scribe. Orders: Orders 2 CRP High Sensitivity Today M54.9 - Dorsalgia, unspecified Erythrocyte Sedimentation Rate Today M54.9 - Dorsalgia, unspecified Coding Level of Care Code Est Pt Level 5 (32969) Diagnoses Back pain M54.9 Sacroiliac joint dysfunction M53.3 Status post lumbar spine surgery for decompression of spinal cord Z98.890
[2023-07-17 09:52] VITALS: BP 145/67; PULSE 67; RESP 14; O2SAT 97
== END 2023-07-17 10:50 | disposition home or self-care (01) ==
PROVIDERS: PCP Nurse Practitioner; Visit Provider Internal Medicine
DX: M54.9 Dorsalgia, unspecified (principal); M53.3 Sacrococcygeal disorders, not elsewhere classified; Z98.890 Other specified postprocedural states
CPT/HCPCS: 99215

== ENCOUNTER 2023-07-27 06:21 | Outpatient (REF) | payer MEDICAID, SELFPAY ==
--- NOTE | ~2023-07-27 | FL_ITS ---
EXAMINATION: XR FLUOROSCOPY WITH IMAGES CLINICAL INFORMATION: Sacrococcygeal disorder. COMPARISON: None available. TECHNIQUE: Fluoroscopy Supervised By: Dr. Edgardo Dent. Fluoroscopy Time: 0.1 minutes. Cumulative Dose: 2.29 mGy. DAP: 0.205 Gy-cm2. Images: 2. FINDINGS: Intraoperative fluoroscopy and spot films were performed during a procedure in the OR. A needle is seen overlying the right SI joint. Please see Dr. Edgardo Dent' report for complete details. FL/FL guidance in treatment room IMPRESSION: Intraoperative fluoroscopy and spot films were obtained. Please see Dr. Edgardo Dent' report for complete details.
== END 2023-07-27 06:22 | disposition home or self-care (01) ==
LOC: CF 06:21
PROVIDERS: Visit Provider Internal Medicine
DX: M53.3 Sacrococcygeal disorders, not elsewhere classified (principal)
CPT/HCPCS: 27096; J2795

== ENCOUNTER 2023-07-27 13:43 | Outpatient (AMB) | payer MEDICAID, SELFPAY ==
--- OUTSIDE RECORDS SUMMARY | 2023-07-27 13:44 | XMS_ITS | Continuity of Care Document ---
Author Organization [facility] Address [address] [place] [id number]- Care Team Providers Care Bale Opener Name Role Phone Donald Bar MD Primary Care Physician Encounter [facility] ACCT R [id number] Date(s): 11/23/22 - 12/23/22 [facility] [address] [place] [id number]- Attending Physician: Italia Hubbard Admitting Physician: Italia Hubbard Referring Physician: Italia Hubbard Allergies, Adverse Reactions, Alerts Substance Reaction Severity Status Flagyl Active Medications aspirin 81 mg oral capsule 1 capsule = 81 mg, By Mouth, Every 4 hours, 0 Refills, Maintenance, 08/25/22 13:08:00 EDT, Partial fill upon patient request if the prescription is for a schedule II opioid drug. Start Date: 08/25/22 Status: Ordered esomeprazole 20 mg oral enteric coated capsule 1 capsule = 20 mg, By Mouth, Daily, # 90 capsule, 3 Refills, Maintenance, 10/24/22 16:44:00 EDT, [place], [id number], Partial fill upon patient request if the prescription is for a schedule II opioid drug., 155.7, cm, 10/24/22 16:39:00 EDT,... Start Date: 10/24/22 Status: Ordered fenofibrate 145 mg oral tablet 0 Refills, Maintenance, 08/25/22 13:06:00 EDT, Partial fill upon patient request if the prescription is for a schedule II opioid drug. Start Date: 08/25/22 Status: Ordered Flovent HFA 110 mcg/inh inhalation aerosol 0 Refills, Maintenance, 08/25/22 13:07:00 EDT, Partial fill upon patient request if the prescription is for a schedule II opioid drug. Start Date: 08/25/22 Status: Ordered fluticasone 50 mcg/inh nasal spray 0 Refills, Maintenance, 08/25/22 13:07:00 EDT, Partial fill upon patient request if the prescription is for a schedule II opioid drug. Start Date: 08/25/22 Status: Ordered loratadine 10 mg oral tablet Refills 0, Maintenance, 08/25/22 13:06:00 EDT, Partial fill upon patient request if the prescription is for a schedule II opioid drug. Start Date: 08/25/22 Status: Ordered losartan 25 mg oral tablet 25 mg, 1, tablet, By Mouth, Daily, # 90 tablet, Refills 3, Tot. Refills 3, Maintenance, 10/24/22 16:43:00 EDT, Route to Pharmacy Electronically, [facility] #[id number], Partial fill upon patient request if the prescription is for a schedule II opioid drug... Start Date: 10/24/22 Status: Ordered montelukast 10 mg oral tablet Refills 0, Maintenance, 08/25/22 13:06:00 EDT, Partial fill upon patient request if the prescription is for a schedule II opioid drug. Start Date: 08/25/22 Status: Ordered rosuvastatin 5 mg oral tablet 0 Refills, Maintenance, 08/25/22 13:06:00 EDT, Partial fill upon patient request if the prescription is for a schedule II opioid drug. Start Date: 08/25/22 Status: Ordered sucralfate 1 gm oral tablet 1 Gm, 1, tablet, By Mouth, 2 times a day, # 180 tablet, Refills 3, Tot. Refills 3, Maintenance, 10/24/22 16:41:00 EDT, Route to Pharmacy Electronically, [facility]/pharmacy #[id number], Partial fill upon patient request if the prescription is for a schedule II opi... Start Date: 10/24/22 Status: Ordered Symbicort 160mcg/4.5mcg Inhaler Refills 0, Maintenance, 08/25/22 13:06:00 EDT Start Date: 08/25/22 Status: Ordered Problem List Condition Confirmation Course Effective Dates Status Health St atus Informant Obese class II Confirmed Active Social History Social History Type Response Smoking Status 10 or more cigarette s (1/2 pack or more)/day in last 30 days; Interested in cessation: No; Patient wants NRT during admission No entered on: 08/25/22 Sex Patient Care team information Care Team Personnel Name: Dipika BERRIOS, Donald Russell Position: [facility] Outreach Member Role: PCP Address: Address: [address] [place] [address]- Care Team Related Persons Name: JOHNNA JUAN Name: BUCKY JUAN
--- OUTSIDE RECORDS SUMMARY | 2023-07-27 13:44 | XMS_ITS | Continuity of Care Document ---
Author Organization [facility] Address [address] [place] [id number]- Care Team Providers Care Slate Trimmer Name Role Phone Donald Bar MD Primary Care Physician [phone] Encounter [facility] ACCT R [id number] Date(s): 09/20/22 - 12/23/22 [facility] [address] [place] [id number]- Attending Physician: Betsy Dominique MD Admitting Physician: Betsy Dominique MD Referring Physician: Robyn SECURITY GUARD, Nils Allergies, Adverse Reactions, Alerts Substance Reaction Severity [...] capsule, 3 Refills, Maintenance, 10/24/22 16:44:00 EDT, [facility], [id number], Partial fill upon patient request [...] 10/24/22 16:43:00 EDT, Route to Pharmacy Electronically, [facility] #[id number], Partial fill upon patient request if [...] 10/24/22 16:41:00 EDT, Route to Pharmacy Electronically, [facility]/pharmacy #[id number], Partial fill upon patient request if [...] Personnel Name: Dipika BERRIOS, Donald Russell Position: [facility] Outreach Member Role: PCP Address: Address: [address] [place] [address]- Care Team Related Persons Name: JOHNNA JUAN Name: BUCKY JUAN
--- OUTSIDE RECORDS SUMMARY | 2023-07-27 13:44 | XMS_ITS | Continuity of Care Document ---
Author Organization [facility] Address [address] [place] [id number]- Care Team Providers Care Java Developer Analyst Name Role Phone Donald Bar MD Primary Care Physician [phone] Encounter [facility] Date(s): 02/14/23 - 03/16/23 [facility] [address] [place] [id number] Allergies, Adverse Reactions, Alerts Substance Reaction Severity Status Flagyl Active Medications aspirin 81 mg oral capsule 1 capsule = 81 mg, By Mouth, Every 4 hours, 0 Refills, Maintenance, 08/25/22 13:08:00 EDT, Partial fill upon patient request if the prescription is for a schedule II opioid drug. Start Date: 08/25/22 Status: Ordered Chantix Starter Pack 0.5 mg-1 mg oral tablet 1 tablet, By Mouth, 2 times a day, as directed on package labeling, # 53 tablet, 0 Refills, Maintenance, 01/02/23 14:45:00 EDT, Tablet, [id number], Partial fill upon patient request if the prescription is for a schedule II opioid drug., 1 tabl... Start Date: 01/02/23 Status: Ordered esomeprazole 20 mg oral enteric [...] 10/24/22 16:43:00 EDT, Route to Pharmacy Electronically, [facility]/pharmacy #[id number], Partial fill upon patient [...] 10/24/22 16:41:00 EDT, Route to Pharmacy Electronically, [facility]/pharmacy #[id number], Partial fill upon patient [...] Personnel Name: Dipika BERRIOS, Donald Russell Position: [facility] Outreach Member Role: PCP Address: Address: [address] [place] [address] Care Team Related Persons Name: JOHNNA JUAN Name: BUCKY JUAN
--- NOTE | 2023-07-27 14:14 | A.OFFVIS_ITS ---
Vital Signs 07/27/23 14:50 07/27/23 14:52 Height 5 ft 9 in Weight 204 lb BMI 30.1 BP 128/72 128/72 Blood Pressure Location Lt brachial Lt brachial Position Sitting Sitting Respiration 16 16 Pulse 80 80 Pulse Source Pulse Oximeter Pulse Oximeter Pulse Oximetry (%) 96 96 Oxygen Delivery Method Room Air Room Air Comment Pre-op Post-op Intake Visit Reasons: Right Dx SIJ inj Allergies metronidazole [From Flagyl] Allergy (Severe, Verified 07/17/23 09:56) Redness of Skin HPI HPI Right Dx SIJ inj: Details: Patient presents for scheduled procedure. Denies any recent cough, cold, infection, fever or other significant changes in medical history since last office visit. [facility] Medical History (Updated 07/17/23 @ 12:32 by Edgardo Dent MD) Helicobacter pylori (H. pylori) CAD (coronary artery disease) Back pain GERD (gastroesophageal reflux disease) Fatty liver Depression Numbness Habitual snoring Wheezing SOB (shortness of breath) Elevated cholesterol HTN (hypertension) Chronic right-sided low back pain with right-sided sciatica Surgical History History of back surgery Hx of eye surgery Hx of hemorrhoidectomy History of lumbosacral spine surgery Social History Are you a primary transitional care manager to a significant other at home: No Do you presently have visiting nurse or other home services: No Patient Tobacco Use Status: Current everyday Tobacco user Tobacco use type: Cigarette Cigarette Packs Per Day: 1.0 Cigarettes Per Day: 20.0 Years Smoked: 40 Physical Exam Vital Signs: Last Vital Signs Pulse 80 07/27/23 14:52 Resp 16 07/27/23 14:52 BP 128/72 07/27/23 14:52 Pulse Ox 96 07/27/23 14:52 Oxygen Delivery Method Room Air 07/27/23 14:52 BMI result Body Mass Index 30.1 Office Procedures Joint Injection/Drain Joint Injection/Drain Details: Sacroiliac Joint Injection, RIGHT The procedure, its benefits, and its risks were explained and written informed consent was obtained from the patient. Immediately prior to starting the procedure, a time-out safety check was conducted. The patient's identification, procedure name, procedure site, and procedure laterality were confirmed with the patient. ? Patient was placed prone on the fluoroscopy table and the lumbosacral area was prepped using ChloraPrep and draped with sterile drapein standard fashion. The C-arm was rotated in a contralateral oblique fashion until the medial border of the iliac crest no longer foreshadowed the posterior sacroiliac joint line. The skin and subcutaneous tissue was anesthetized using 1 mL of 0.75% plain lidocaine with 1.5-inch 25-gauge needle in the middle region of the joint line.? A 3.5-inch 22-gauge spinal needle with small bend on the tip was slowly advanced towards the joint line, coaxial to the x-ray beam. Once bony content was obtained, the needle was easily slid into the intra-articular space.? Intra- articular needle position was confirmed using lateral fluoroscopy.? A total volume of 2.5mL of solution containing 0.5% of ropivacaine was injected intra- articularly. The stylet was reinserted and needle was removed. The patient tolerated the procedure well. Patient denied any lower extremity weakness or numbness. Patient was observed for 30 min and was discharged after fulfilling the standard discharge criteria. Coding 92312 - Sacroiliac Procedure code (CPT) selection complete Assessment & Plan Assessment & Plan (1) Sacroiliac joint dysfunction: Code(s): M53.3 - Sacrococcygeal disorders, not elsewhere classified Category: Medical Plan Patient is status post right diagnostic sacroiliac joint injection. Patient tolerated procedure well and was discharged home in stable condition with discharge instructions. All questions were answered. We will follow-up via telephone or in clinic to assess response to therapy. A follow-up appointment was made during today's visit. Orders: Orders FL guidance in treatment room Today M53.3 - Sacrococcygeal disorders, not elsewhere classified Coding Level of Care Code Procedure Only Diagnoses Sacroiliac joint dysfunction M53.3 CPT Codes Coding - Joint 9: 94047 - Sacroiliac ([id number])
[2023-07-27 14:50] VITALS: BP 128/72; PULSE 80; RESP 16; O2SAT 96; BMI 30.1
[2023-07-27 14:52] VITALS: BP 128/72; PULSE 80; RESP 16; O2SAT 96
== END 2023-07-27 14:46 | disposition home or self-care (01) ==
LOC: HO.PMCPRC 13:43
PROVIDERS: PCP Nurse Practitioner; Visit Provider Internal Medicine
DX: M53.3 Sacrococcygeal disorders, not elsewhere classified (principal)
CPT/HCPCS: 27096

== ENCOUNTER 2023-08-04 09:02 | Outpatient (AMB) | payer MEDICAID, SELFPAY ==
--- NOTE | 2023-08-04 09:03 | A.OFFVIS_ITS ---
Vital Signs 08/04/23 09:06 Height 5 ft 9 in Weight 204 lb BMI 30.1 BP 154/72 H Blood Pressure Location Lt brachial Position Sitting Respiration 14 Pulse 83 Pulse Source Pulse Oximeter Intake Visit Reasons: s/p right Dx SIJ Allergies metronidazole [From Flagyl] Allergy (Severe, Verified 08/04/23 09:06) Redness of Skin chlorhexidine [From ChloraPrep Clear] Allergy (Mild, Verified 08/04/23 09:27) Rash isopropyl alcohol [From ChloraPrep Clear] Allergy (Mild, Verified 08/04/23 09:27) Rash Medication List - Last Reconciled 08/04/23 by Tabby Haas LPN aspirin (Adult Aspirin Regimen) 81 mg PO DAILY bisacodyl (Dulcolax (bisacodyl)) 20 mg (4 x 5 mg) PO ONCE 1 day budesonide-formoterol 160-4.5 mcg/actuation (Symbicort) 2 puffs inhalation BID calcium carbonate-vitamin D3 600 mg-10 mcg (400 unit) 1 tab PO DAILY calcium polycarbophil (Fiber Laxative (calcium polycarbophil)) 1,250 mg (2 x 625 mg) PO DAILY 90 days esomeprazole magnesium 20 mg PO BID 90 days fenofibrate nanocrystallized 145 mg PO BEDTIME fluticasone propionate 50 mcg/actuation 1 spray intranasal DAILY loratadine 10 mg PO DAILY PRN lorazepam 1 mg PO DAILY PRN losartan 25 mg PO DAILY montelukast 10 mg PO BEDTIME oxycodone 5 mg PO Q4H PRN oxycodone 5 mg PO BID polyethylene glycol 3350 (Miralax) 238 grams PO ONCE 1 day polyethylene glycol 3350 (Miralax) 238 grams PO ONCE PRN 1 day pregabalin 75 mg PO BEDTIME rosuvastatin 5 mg PO BEDTIME tramadol 50 mg PO DAILY HPI HPI s/p right Dx SIJ: Details: 62-year-old male who presents today to the office for a status post right diagnostic SIJ injection. The patient reports more than 80% relief following the procedure for the diagnostic phase, followed by about 30-40% relief which is ongoing. He is taking tylenol for pain management. He reports pain in his bilateral foot/ankles that started in the past. He is not able to stand or walk for prolonged periods of time. He had ankle injections from orthopedics in the past. He has been taking rosuvastatin medication for elevated cholesterol and LDL levels. His recent blood work was WNL, done elsewhere.?He denies any history of heart attack in the past. Past procedures 07/27/23: Diagnostic Sacroiliac Joint Injection, RIGHT: 80% relief. [facility] Medical History (Updated 08/04/23 @ 09:35 by Edgardo Dent MD) Helicobacter pylori (H. pylori) CAD (coronary artery disease) Back pain GERD (gastroesophageal reflux disease) Fatty liver Depression Numbness Habitual snoring Wheezing SOB (shortness of breath) Elevated cholesterol HTN (hypertension) Chronic right-sided low back pain with right-sided sciatica Surgical History History of back surgery Hx of eye surgery Hx of hemorrhoidectomy History of lumbosacral spine surgery Social History Are you a primary manager care management to a significant other at home: No Do you presently have visiting nurse or other home services: No Patient Tobacco Use Status: Current everyday Tobacco user Tobacco use type: Cigarette Cigarette Packs Per Day: 1.0 Cigarettes Per Day: 20.0 Years Smoked: 40 Review of Systems Const All systems reviewed & are unremarkable except as noted in HPI and below Physical Exam Vital Signs: Last Vital Signs Pulse 83 08/04/23 09:06 Resp 14 08/04/23 09:06 BP 154/72 H 08/04/23 09:06 BMI result Body Mass Index 30.1 General: Appears afebrile. Alert and oriented. Mood and affect appropriate. Follows and participates in conversation appropriately. Respiratory effort is unlabored. Able to transition from sit to stand unassisted. Ambulates with bilaterally normal heel strike and toe off. Mild tenderness to palpation overlying the right heel. There is a callus on the left heel which is not particularly tender. Mild rash that is resolving in the lower back area. No evidence of venous varicosities. Results Reviewed Results Reviewed: No imaging is available for review. Assessment & Plan Assessment & Plan (1) Sacroiliac joint dysfunction: Code(s): M53.3 - Sacrococcygeal disorders, not elsewhere classified Category: Medical (2) Status post lumbar spine surgery for decompression of spinal cord: Code(s): Z98.890 - Other specified postprocedural states Category: Surgical (3) Plantar fasciitis: Code(s): M72.2 - Plantar fascial fibromatosis Category: Medical (4) Heel pain, bilateral: Code(s): M79.671 - Pain in right foot; M79.672 - Pain in left foot Category: Medical (5) Pain of muscle of lower leg: Code(s): M79.18 - Myalgia, other site Category: Medical Plan 62-year-old male with multiple pain complaints including low back pain secondary to post-laminectomy syndrome and SI joint dysfunction, bilateral heel pain likely secondary to plantar fasciitis and generalized muscular pain and lower extremities possibly secondary to longstanding statin use. His sacroiliac joint pain has improved since the diagnostic injection. He denies any pain for the following 2 days and he continues to have about 30% relief. I counseled him that we can repeat diagnostic or therapeutic injections in the future as needed if he gets a flare of sacroiliac related pain again. He did report some itching on the skin for couple of days following the injection, which could be secondary to an allergic reaction to ChloraPrep. For his bilateral heel pain, I recommended pursuing stretching exercises for plantar fasciitis for the next 2-3 months before soliciting further podiatric input. Patient expressed understanding. For his generalized muscular pain in lower extremities, I recommended holding rosuvastatin use for the following 3-4 months in combination with dietary modification by reducing fatty food intake. He does take a fairly high fat diet. I counseled him to control his dietary fat intake and supplement this with using herbal supplements like danger and garlic as well as increasing his aerobic exercise activity. We will re-evaluate in 3-4 months if this combination of medication and lifestyle modification helps with his lower extremity generalized pain. His inflammatory markers have been negative and there is no evidence of any kind of weakness. Scribed for Dr. Dent by Agustin Ya, medical manager, on 08/04/2023. I, Dr. Dent, have personally reviewed and agree with the information entered by the scribe. Coding Level of Care Code Est Pt Level 4 (92958) Diagnoses Sacroiliac joint dysfunction M53.3 Status post lumbar spine surgery for decompression of spinal cord Z98.890 Plantar fasciitis M72.2 Heel pain, bilateral M79.671; M79.672 Pain of muscle of lower leg M79.18
[2023-08-04 09:06] VITALS: BP 154/72; PULSE 83; RESP 14; BMI 30.1
== END 2023-08-04 09:28 | disposition home or self-care (01) ==
PROVIDERS: PCP Nurse Practitioner; Visit Provider Internal Medicine
DX: M53.3 Sacrococcygeal disorders, not elsewhere classified (principal); M72.2 Plantar fascial fibromatosis; M79.671 Pain in right foot; M79.672 Pain in left foot; M79.18 Myalgia, other site; Z98.890 Other specified postprocedural states
CPT/HCPCS: 99214

== ENCOUNTER → 2023-08-04 09:02 | Outpatient (BNVA) | payer MEDICAID, SELFPAY | PROVIDERS: PCP Nurse Practitioner; Visit Provider Internal Medicine | DX: M53.3 Sacrococcygeal disorders, not elsewhere classified (principal); M72.2 Plantar fascial fibromatosis; M79.671 Pain in right foot; M79.672 Pain in left foot; M79.18 Myalgia, other site; Z98.890 Other specified postprocedural states | CPT/HCPCS: 99212 ==

== ENCOUNTER 2023-09-29 08:58 | Outpatient (AMB) | payer MEDICAID, SELFPAY ==
--- NOTE | 2023-09-29 08:58 | A.OFFVIS_ITS ---
Intake Visit Reasons: 2 MONTH FOLLOW UP Intake Note: Pain today 07/13 Nurse Ldr Required: Yes Accompanied by: Family/Other Allergies metronidazole [From Flagyl] Allergy (Severe, Verified 09/29/23 09:02) Redness of Skin chlorhexidine [From ChloraPrep Clear] Allergy (Mild, Verified 09/29/23 09:02) Rash isopropyl alcohol [From ChloraPrep Clear] Allergy (Mild, Verified 09/29/23 09:02) Rash HPI HPI 2 MONTH FOLLOW UP: Details: 62-year-old male who presents today to the office for two months follow up. He reports worsening of the bilateral leg pain. His pain aggravates with prolonged sitting, standing, or walking. His pain is more related to his muscles. Weather and movements worsens the pain. He wants to discuss other options today for his pain.? He underwent an L3-4 bilateral decompression and a right L4-[address] Melissa on 05/24/23 post lumbar decompression for right lumbar radiculopathy. He continued to have midback pain, which has been worsening and radiating to the left leg. Dr. Melissa recommended additional fusion surgery for pain. Past procedures 07/27/23: Diagnostic Sacroiliac Joint Injection, Right: 80% axial back pain relief. [facility] Medical History (Updated 08/04/23 @ 09:35 by Edgardo Dent MD) Helicobacter pylori (H. pylori) CAD (coronary artery disease) Back pain GERD (gastroesophageal reflux disease) Fatty liver Depression Numbness Habitual snoring Wheezing SOB (shortness of breath) Elevated cholesterol HTN (hypertension) Chronic right-sided low back pain with right-sided sciatica Surgical History History of back surgery Hx of eye surgery Hx of hemorrhoidectomy History of lumbosacral spine surgery Social History Are you a primary home care chaplain to a significant other at home: No Do you presently have visiting nurse or other home services: No Patient Tobacco Use Status: Current everyday Tobacco user Tobacco use type: Cigarette Cigarette Packs Per Day: 1.0 Cigarettes Per Day: 20.0 Years Smoked: 40 Review of Systems Const All systems reviewed & are unremarkable except as noted in HPI and below Physical Exam General: Appears afebrile. Alert and oriented. Mood and affect appropriate. Follows and participates in conversation appropriately. Respiratory effort is unlabored. Able to transition from sit to stand unassisted. Ambulates with bilaterally normal heel strike and toe off. Results Reviewed Results Reviewed: No imaging is available for review. Assessment & Plan Assessment & Plan (1) Lumbar radiculopathy, chronic: Code(s): M54.16 - Radiculopathy, lumbar region Category: Medical (2) Status post lumbar spine surgery for decompression of spinal cord: Code(s): Z98.890 - Other specified postprocedural states Category: Medical Plan For his right radicular symptoms, we will plan for a right L4 transforaminal epidural steroid injection. I had a long discussion with him about the risks and benefits of spinal cord stimulator vs. a lumbar fusion. We will proceed with trial of transforaminal injections for now for his neuropathic symptoms in the right lower leg. If these injections are not helpful, we will consider a trial of spinal cord stimulator prior to a proceeding with a lumbar fusion. Discussed the risks and benefits of the procedure with the patient in detail. All questions were answered. The patient is on board with the plan. Justification for interventional therapy: ? Patient with average pain > 6/10 ? Patient has exhausted conservative therapy ? Patient unable to tolerate physical therapy due to pain. . Patient has a good understanding of their pain condition and has appropriate mental and social support Scribed for Dr. Dent by Agustin Ya, medical billing representative, on 09/29/2023. I, Dr. Dent, have personally reviewed and agree with the information entered by the scribe. Coding Level of Care Code Est Pt Level 3 (27507) Diagnoses Lumbar radiculopathy, chronic M54.16 Status post lumbar spine surgery for decompression of spinal cord Z98.890
== END 2023-09-29 09:40 | disposition home or self-care (01) ==
PROVIDERS: PCP Nurse Practitioner; Visit Provider Internal Medicine
DX: M54.16 Radiculopathy, lumbar region (principal); Z98.890 Other specified postprocedural states
CPT/HCPCS: 99213

== ENCOUNTER → 2023-09-29 08:58 | Outpatient (BNVA) | payer MEDICAID, SELFPAY | PROVIDERS: PCP Nurse Practitioner; Visit Provider Internal Medicine | DX: M54.16 Radiculopathy, lumbar region (principal); Z98.890 Other specified postprocedural states | CPT/HCPCS: 99212 ==

== ENCOUNTER 2023-10-12 06:12 | Outpatient (REF) | payer MEDICAID, SELFPAY ==
--- NOTE | ~2023-10-12 | FL_ITS ---
EXAMINATION: XR FLUOROSCOPY WITH IMAGES CLINICAL INFORMATION: Lumbar radiculopathy. Pain management. COMPARISON: Lumbar spine x-rays 01/31/2023. TECHNIQUE: Fluoroscopy provided to: Dr. Dent Fluoroscopy time: 0.1 minutes DAP: 0.0310 mGycm2 Images: 3 FINDINGS: Coned-down PA, oblique, and lateral images of a lumbar level, level not apparent, show needle placement within the right nerve root sleeve of an unknown level. Refer to the full report for details. FL/FL guidance in treatment room IMPRESSION: Fluoroscopic guidance. Please refer to the full operative report for details. Electronically signed by: Dawood Ramsey MD 12/08/2023 03:33 PM EDT
== END 2023-10-12 06:13 | disposition home or self-care (01) ==
LOC: CF 06:12
PROVIDERS: Visit Provider Internal Medicine
DX: M54.16 Radiculopathy, lumbar region (principal)
CPT/HCPCS: 64483; J1100; Q9967

== ENCOUNTER 2023-10-12 09:51 | Outpatient (AMB) | payer MEDICAID, SELFPAY ==
[2023-10-12 09:58] VITALS: BP 148/78; PULSE 60; RESP 16; O2SAT 100
--- NOTE | 2023-10-12 10:54 | A.OFFVIS_ITS ---
Vital Signs 10/12/23 09:58 10/12/23 10:55 BP 148/78 H 141/76 H Blood Pressure Location Lt brachial Lt brachial Position Sitting Sitting Respiration 16 16 Pulse 60 54 Pulse Source Pulse Oximeter Pulse Oximeter Pulse Oximetry (%) 100 98 Oxygen Delivery Method Room Air Room Air Comment Pre-op Post-op Intake Visit Reasons: Right L4 TFESI Allergies metronidazole [From Flagyl] Allergy (Severe, Verified 09/29/23 09:02) Redness of Skin chlorhexidine [From ChloraPrep Clear] Allergy (Mild, Verified 09/29/23 09:02) Rash isopropyl alcohol [From ChloraPrep Clear] Allergy (Mild, Verified 09/29/23 09:02) Rash HPI HPI Right L4 TFESI: Details: Patient presents for scheduled procedure. Denies any recent cough, cold, infection, fever or other significant changes in medical history since last office visit. [facility] Medical History (Updated 08/04/23 @ 09:35 by Edgardo Dent MD) Helicobacter pylori (H. pylori) CAD (coronary artery disease) Back pain GERD (gastroesophageal reflux disease) Fatty liver Depression Numbness Habitual snoring Wheezing SOB (shortness of breath) Elevated cholesterol HTN (hypertension) Chronic right-sided low back pain with right-sided sciatica Surgical History History of back surgery Hx of eye surgery Hx of hemorrhoidectomy History of lumbosacral spine surgery Social History Are you a primary long term care administrator to a significant other at home: No Do you presently have visiting nurse or other home services: No Patient Tobacco Use Status: Current everyday Tobacco user Tobacco use type: Cigarette Cigarette Packs Per Day: 1.0 Cigarettes Per Day: 20.0 Years Smoked: 40 Physical Exam Vital Signs: Last Vital Signs Pulse 54 10/12/23 10:55 Resp 16 10/12/23 10:55 BP 141/76 H 10/12/23 10:55 Pulse Ox 98 10/12/23 10:55 Oxygen Delivery Method Room Air 10/12/23 10:55 Office Procedures Details: Transforaminal epidural steroid injection, Right L4 After obtaining written consent, pre-procedure blood pressure and heart rate were stable and recorded in the nursing record. The patient was placed in the prone position on the fluoroscopy table. The lumbosacral area was prepped with chloraprep, allowed to dry and draped in sterile fashion. Using fluoroscopy, the skin overlying our target was anesthetized with 0.5% lidocaine. A 22 gauge 3.5 inch spinal needle was advanced to the safe triangle in the upper pole of the right L4 foramen. No paresthesias were elicited with needle placement and aspiration was negative for blood and CSF. Correct needle position was confirmed with approximately 1 ml contrast dye (Omnipaque 180 mg/ml) injected under real-time fluoroscopy. No evidence of vascular or intrathecal uptake was seen and there was both epidural and peripheral spread of the contrast agent. 10 mg dexamethasone plus 1 ml containing 0.5% lidocaine was slowly injected. The needle was flushed and removed. The skin was cleansed and a sterile bandages were applied. The patient tolerated the procedure well and no complications were encountered. Following the procedure the patient's vital signs were stable. The patient was discharged home in good condition with post-procedural instructions. Time Out: Immediately prior to the procedure, the following was verbally confirmed that there is a signed consent form and that the correct patient, planned procedure, site and side are consistent with documentation and that necessary equipment and/or blood products are available prior to the start of the case. Complications: none EBL: <5 cc 23984 - Lumbar/Sacral Procedure code (CPT) selection complete Assessment & Plan Assessment & Plan (1) Lumbar radiculopathy, chronic: Code(s): M54.16 - Radiculopathy, lumbar region Category: Medical Plan Patient is status post right L4 TFESI. Patient tolerated procedure well and was discharged home in stable condition with discharge instructions. All questions were answered. We will follow-up via telephone or in clinic to assess response to therapy. A follow-up appointment was made during today's visit. Orders: Orders FL guidance in treatment room Today M54.16 - Radiculopathy, lumbar region Coding Level of Care Code Procedure Only Diagnoses Lumbar radiculopathy, chronic M54.16 CPT Codes Transforaminal Epidural Steroid Inj - TESI 3: 43270 - Lumbar/Sacral ([id number])
[2023-10-12 10:55] VITALS: BP 141/76; PULSE 54; RESP 16; O2SAT 98
== END 2023-10-12 10:53 | disposition home or self-care (01) ==
LOC: HO.PMCPRC 09:51
PROVIDERS: PCP Nurse Practitioner; Visit Provider Internal Medicine
DX: M54.16 Radiculopathy, lumbar region (principal)
CPT/HCPCS: 64483

== ENCOUNTER 2023-10-30 08:27 | Outpatient (AMB) | payer MEDICAID, SELFPAY ==
--- NOTE | 2023-10-30 08:31 | MHC.OFFVIS ---
Vital Signs 10/30/23 08:33 Height 5 ft 9 in Weight 199 lb BMI 29.4 BP 138/73 Blood Pressure Location Lt brachial Position Sitting Respiration 14 Pulse 62 Pulse Source Pulse Oximeter Pulse Oximetry (%) 97 Oxygen Delivery Method Room Air Intake Visit Reasons: s/p right L4 TFESI Allergies metronidazole [From Flagyl] Allergy (Severe, Verified 10/30/23 08:34) Redness of Skin chlorhexidine [From ChloraPrep Clear] Allergy (Mild, Verified 10/30/23 08:34) Rash isopropyl alcohol [From ChloraPrep Clear] Allergy (Mild, Verified 10/30/23 08:34) Rash Medication List - Last Reconciled 10/30/23 by Tabby Haas LPN aspirin (Adult Aspirin Regimen) 81 mg PO DAILY bisacodyl (Dulcolax (bisacodyl)) 20 mg (4 x 5 mg) PO ONCE 1 day budesonide-formoterol 160-4.5 mcg/actuation (Symbicort) 2 puffs inhalation BID calcium carbonate-vitamin D3 600 mg-10 mcg (400 unit) 1 tab PO DAILY calcium polycarbophil (Fiber Laxative (calcium polycarbophil)) 1,250 mg (2 x 625 mg) PO DAILY 90 days esomeprazole magnesium 20 mg PO BID 90 days fenofibrate nanocrystallized 145 mg PO BEDTIME fluticasone propionate 50 mcg/actuation 1 spray intranasal DAILY loratadine 10 mg PO DAILY PRN lorazepam 1 mg PO DAILY PRN losartan 25 mg PO DAILY montelukast 10 mg PO BEDTIME oxycodone 5 mg PO Q4H PRN oxycodone 5 mg PO BID polyethylene glycol 3350 (Miralax) 238 grams PO ONCE 1 day polyethylene glycol 3350 (Miralax) 238 grams PO ONCE PRN 1 day pregabalin 75 mg PO BEDTIME rosuvastatin 5 mg PO BEDTIME tramadol 50 mg PO DAILY HPI HPI s/p right L4 TFESI: Details: 62-year-old male who presents today to the office for a status post right L4 transforaminal epidural steroid injection. The patient reports no particular relief following the procedure. He reports 2-3 days of fevers post-injection. He is not interested in further steroid injections due to side effects. He reports worsening severe right foot and calf pain. He states that his pain worsens after waking up in the morning. He underwent an L3-4 bilateral decompression and a right L4-5 decompression. He had some resolution of the pain for a few days, but his pain started to return to baseline. Continues to report right knee pain, especially on the posterior aspect. Past procedures 10/12/23: Transforaminal epidural steroid injection, Right L4: No relief. 07/27/23: Diagnostic Sacroiliac Joint Injection, Right: 80% axial back pain relief. [facility] Medical History (Updated 08/04/23 @ 09:35 by Edgardo Dent MD) Helicobacter pylori (H. pylori) CAD (coronary artery disease) Back pain GERD (gastroesophageal reflux disease) Fatty liver Depression Numbness Habitual snoring Wheezing SOB (shortness of breath) Elevated cholesterol HTN (hypertension) Chronic right-sided low back pain with right-sided sciatica Surgical History History of back surgery Hx of eye surgery Hx of hemorrhoidectomy History of lumbosacral spine surgery Social History Are you a primary medicare sales representative to a significant other at home: No Do you presently have visiting nurse or other home services: No Patient Tobacco Use Status: Current everyday Tobacco user Tobacco use type: Cigarette Cigarette Packs Per Day: 1.0 Cigarettes Per Day: 20.0 Years Smoked: 40 Review of Systems Const All systems reviewed & are unremarkable except as noted in HPI and below Physical Exam Vital Signs: Last Vital Signs Pulse 62 10/30/23 08:33 Resp 14 10/30/23 08:33 BP 138/73 10/30/23 08:33 Pulse Ox 97 10/30/23 08:33 Oxygen Delivery Method Room Air 10/30/23 08:33 BMI result Body Mass Index 29.4 General: Appears afebrile. Alert and oriented. Mood and affect appropriate. Follows and participates in conversation appropriately. Respiratory effort is unlabored. Able to transition from sit to stand unassisted. Ambulates with bilaterally normal heel strike and toe off. Results Reviewed Results Reviewed: No imaging is available for review. Assessment & Plan Assessment & Plan (1) Sacroiliac joint dysfunction: Code(s): M53.3 - Sacrococcygeal disorders, not elsewhere classified Category: Medical (2) Status post lumbar spine surgery for decompression of spinal cord: Code(s): Z98.890 - Other specified postprocedural states Category: Medical (3) Lumbar radiculopathy, chronic: Code(s): M54.16 - Radiculopathy, lumbar region Category: Medical Plan I prescribed meloxicam 15 mg for his knee pain. I also refilled his pregabalin 75 milligrams QHS, which he has not been taking for the past few months. I advised him to continue monitoring for any side effects. He will follow up in one month.? I had a long discussion with the patient regarding the risks and benefits of neuromodulation for his neuropathic leg pain. He is interested in trialing further oral medications prior to proceeding with more interventional therapy. I also had a long discussion with him regarding the risks and benefits of further spine surgery. At this time, given the lack of significant neural compression in his lumbar spine, I doubt that he would benefit from significant instrumentation and fusion of his lower back. Scribed for Dr. Dent by Agustin Ya, medical administrative assistant, on 10/30/2023. I, Dr. Dent, have personally reviewed and agree with the information entered by the scribe. Medications: New meloxicam 15 mg PO DAILY 30 tabs 0RF Refilled pregabalin 75 mg PO BEDTIME 30 caps 0RF R19.5 - Other fecal abnormalities Coding Level of Care Code Est Pt Level 4 (18185) Diagnoses Sacroiliac joint dysfunction M53.3 Status post lumbar spine surgery for decompression of spinal cord Z98.890 Lumbar radiculopathy, chronic M54.16
[2023-10-30 08:33] VITALS: BP 138/73; PULSE 62; RESP 14; O2SAT 97; BMI 29.4
== END 2023-10-30 09:15 | disposition home or self-care (01) ==
PROVIDERS: PCP Nurse Practitioner; Visit Provider Internal Medicine
DX: M53.3 Sacrococcygeal disorders, not elsewhere classified (principal); Z98.890 Other specified postprocedural states; M54.16 Radiculopathy, lumbar region
CPT/HCPCS: 99214

== ENCOUNTER → 2023-10-30 08:27 | Outpatient (BNVA) | payer MEDICAID, SELFPAY | PROVIDERS: PCP Nurse Practitioner; Visit Provider Internal Medicine | DX: M54.16 Radiculopathy, lumbar region (principal); M53.3 Sacrococcygeal disorders, not elsewhere classified; Z98.890 Other specified postprocedural states | CPT/HCPCS: 99212 ==

== ENCOUNTER 2023-11-17 15:00 | Outpatient (AMB) | payer MEDICAID, SELFPAY ==
--- NOTE | 2023-11-17 15:10 | A.SPINEOV_ITS ---
Intake Visit Reasons: back pain Intake Note: Mr. Arechiga is here today c/o back pain. Bottling Line Attendant Required: No Allergies metronidazole [From Flagyl] Allergy (Severe, Verified 10/30/23 08:34) Redness of Skin chlorhexidine [From ChloraPrep Clear] Allergy (Mild, Verified 10/30/23 08:34) Rash isopropyl alcohol [From ChloraPrep Clear] Allergy (Mild, Verified 10/30/23 08:34) Rash Assessment & Plan Assessment & Plan (1) Lumbar radiculopathy, chronic: Code(s): M54.16 - Radiculopathy, lumbar region Category: Medical Plan Dear colleague, On 11/17/2023 I saw for follow-up visitMary Arechiga for progression of his predominantly right leg pain. The pain is worse in the morning and gets better during the day. Says in the last month it became more severe than ever. He wants to know with the surgical options are. I told him that a spinal fusion would be the last surgical option. I also told him that the more spine surgeries are done the less successful they are. I quoted success rate of 65%. He is also seeing were apparently told him that he can put a stimulator in that will help with his back pain. He was also afraid that he was going to be paralyzed which he is not true. The NT decided that he was going to see how his symptoms are going to react to the winter season. I may see him back if he wants to proceed with a lumbar fusion. I will leave it up to the patient. I spent 45 minutes in his consult answered questions to the patient and his son. Pablo Melissa MD, PhD Spine Fellowship Trained Neurosurgeon Director, [facility] Coding Level of Care Code Est Pt Level 5 (15060) Diagnoses Lumbar radiculopathy, chronic M54.16
== END 2023-11-17 15:43 | disposition home or self-care (01) ==
PROVIDERS: PCP Nurse Practitioner; Referring Provider Nurse Practitioner; Visit Provider Neurological Surgery
DX: M54.16 Radiculopathy, lumbar region (principal)
CPT/HCPCS: 99215

== ENCOUNTER → 2023-11-17 15:00 | Outpatient (BNVA) | payer MEDICAID, SELFPAY | PROVIDERS: PCP Nurse Practitioner; Visit Provider Neurological Surgery | DX: M54.16 Radiculopathy, lumbar region (principal) | CPT/HCPCS: 99212 ==

== ENCOUNTER 2023-12-15 08:07 | Outpatient (AMB) | payer MEDICAID, SELFPAY ==
--- NOTE | 2023-12-15 08:10 | MHC.OFFVIS ---
Vital Signs 12/15/23 08:11 Height 5 ft 9 in Weight 200 lb BMI 29.5 BP 150/72 H Blood Pressure Location Lt brachial Position Sitting Respiration 15 Pulse 62 Pulse Source Pulse Oximeter Pulse Oximetry (%) 98 Oxygen Delivery Method Room Air Intake Visit Reasons: Follow Up Allergies metronidazole [From Flagyl] Allergy (Severe, Verified 12/15/23 08:13) Redness of Skin chlorhexidine [From ChloraPrep Clear] Allergy (Mild, Verified 12/15/23 08:13) Rash isopropyl alcohol [From ChloraPrep Clear] Allergy (Mild, Verified 12/15/23 08:13) Rash Medication List - Last Reconciled 12/15/23 by Tabby Haas LPN aspirin (Adult Aspirin Regimen) 81 mg PO DAILY bisacodyl (Dulcolax (bisacodyl)) 20 mg (4 x 5 mg) PO ONCE 1 day budesonide-formoterol 160-4.5 mcg/actuation (Symbicort) 2 puffs inhalation BID calcium carbonate-vitamin D3 600 mg-10 mcg (400 unit) 1 tab PO DAILY calcium polycarbophil (Fiber Laxative (calcium polycarbophil)) 1,250 mg (2 x 625 mg) PO DAILY 90 days esomeprazole magnesium 20 mg PO BID 90 days fenofibrate nanocrystallized 145 mg PO BEDTIME fluticasone propionate 50 mcg/actuation 1 spray intranasal DAILY loratadine 10 mg PO DAILY PRN lorazepam 1 mg PO DAILY PRN losartan 25 mg PO DAILY meloxicam 15 mg PO DAILY montelukast 10 mg PO BEDTIME oxycodone 5 mg PO Q4H PRN oxycodone 5 mg PO BID polyethylene glycol 3350 (Miralax) 238 grams PO ONCE 1 day polyethylene glycol 3350 (Miralax) 238 grams PO ONCE PRN 1 day pregabalin 75 mg PO BEDTIME rosuvastatin 5 mg PO BEDTIME tramadol 50 mg PO DAILY HPI HPI Follow Up: Details: 62-year-old male who presents today to the office for a follow up. The pain is worse in the morning and gets better during the day. His pain aggravates with weather changes. He also reports pain in his neck region. He took pregabalin and meloxicam together that cause episodes of bradycardia. He also has a history of two strokes in the past. He has been doing gentle exercises at home and tolerating it well. He had a visit with a surgeon who recommended fusion surgery as the last surgical option, with a success rate of 65%. He inquired about doing lumbar decompression instead of lumbar fusion.?He inquired about the efficiency of SCS device.?He recently started homeopathic medications. He has not tried salonpas patches in the past. Past procedures 10/12/23: Transforaminal epidural steroid injection, Right L4: No relief. 07/27/23: Diagnostic Sacroiliac Joint Injection, Right: 80% axial back pain relief. [facility] Medical History (Updated 08/04/23 @ 09:35 by Edgardo Dent MD) Helicobacter pylori (H. pylori) CAD (coronary artery disease) Back pain GERD (gastroesophageal reflux disease) Fatty liver Depression Numbness Habitual snoring Wheezing SOB (shortness of breath) Elevated cholesterol HTN (hypertension) Chronic right-sided low back pain with right-sided sciatica Surgical History History of back surgery Hx of eye surgery Hx of hemorrhoidectomy History of lumbosacral spine surgery Social History Are you a primary medical care evaluation specialist to a significant other at home: No Do you presently have visiting nurse or other home services: No Patient Tobacco Use Status: Current everyday Tobacco user Tobacco use type: Cigarette Cigarette Packs Per Day: 1.0 Cigarettes Per Day: 20.0 Years Smoked: 40 Review of Systems Const All systems reviewed & are unremarkable except as noted in HPI and below Physical Exam Vital Signs: Last Vital Signs Pulse 62 12/15/23 08:11 Resp 15 12/15/23 08:11 BP 150/72 H 12/15/23 08:11 Pulse Ox 98 12/15/23 08:11 Oxygen Delivery Method Room Air 12/15/23 08:11 BMI result Body Mass Index 29.5 General: Appears afebrile. Alert and oriented. Mood and affect appropriate. Follows and participates in conversation appropriately. Respiratory effort is unlabored. Able to transition from sit to stand unassisted. Ambulates with bilaterally normal heel strike and toe off. Results Reviewed Results Reviewed: No imaging is available for review. Assessment & Plan Assessment & Plan (1) Lumbar radiculopathy, chronic: Code(s): M54.16 - Radiculopathy, lumbar region Category: Medical Plan Patient is taking homeopathic medicines at this time and would like to continue that for now. He is not currently interested in any further interventions with respect to neuromodulation or fusion. We will continue follow up per patient request and consider neuromodulation if symptoms get worse again. For his neck pain, I recommended trying salonpas patches. Scribed for Dr. Dent by Agustin Ya, rn medical inpatient services, on 12/15/2023. I, Dr. Dent, have personally reviewed and agree with the information entered by the scribe. Coding Level of Care Code Est Pt Level 4 (28959) Diagnoses Lumbar radiculopathy, chronic M54.16 Time Spent (min) 30
[2023-12-15 08:11] VITALS: BP 150/72; PULSE 62; RESP 15; O2SAT 98; BMI 29.5
== END 2023-12-15 08:56 | disposition home or self-care (01) ==
PROVIDERS: PCP Nurse Practitioner; Visit Provider Internal Medicine
DX: M54.16 Radiculopathy, lumbar region (principal)
CPT/HCPCS: 99214

== ENCOUNTER → 2023-12-15 08:07 | Outpatient (BNVA) | payer MEDICAID, SELFPAY | PROVIDERS: PCP Nurse Practitioner; Visit Provider Internal Medicine | DX: M54.16 Radiculopathy, lumbar region (principal) | CPT/HCPCS: 99212 ==

== ENCOUNTER 2024-06-26 10:19 | Outpatient (AMB) | payer MEDICAID, SELFPAY ==
[2024-06-26 10:31] VITALS: BP 123/61; PULSE 63; RESP 16; O2SAT 97; BMI 29.4
--- NOTE | 2024-06-26 10:31 | MHC.OFFVIS ---
Vital Signs 06/26/24 10:31 Height 5 ft 9 in Weight 199 lb BMI 29.4 BP 123/61 Blood Pressure Location Lt brachial Position Sitting Respiration 16 Pulse 63 Pulse Source Pulse Oximeter Pulse Oximetry (%) 97 Oxygen Delivery Method Room Air Intake Visit Reasons: f/u per Dr. Dent District Fire Chief Required: Yes District Fire Chief Services: District Fire Chief Offered & Declined District Fire Chief Name: Prefers son Allergies metronidazole [From Flagyl] Allergy (Severe, Verified 06/26/24 10:34) Redness of Skin chlorhexidine [From ChloraPrep Clear] Allergy (Mild, Verified 06/26/24 10:34) Rash isopropyl alcohol [From ChloraPrep Clear] Allergy (Mild, Verified 06/26/24 10:34) Rash Medication List - Last Reconciled 06/26/24 by Tabby Haas LPN aspirin (Adult Aspirin Regimen) 81 mg PO DAILY budesonide-formoterol 160-4.5 mcg/actuation (Symbicort) 2 puffs inhalation BID calcium polycarbophil (Fiber Laxative (calcium polycarbophil)) 1,250 mg (2 x 625 mg) PO DAILY 90 days esomeprazole magnesium 20 mg PO BID 90 days fluticasone propionate 50 mcg/actuation 1 spray intranasal DAILY loratadine 10 mg PO DAILY PRN losartan 25 mg PO DAILY meloxicam 15 mg PO DAILY montelukast 10 mg PO BEDTIME rosuvastatin 5 mg PO BEDTIME HPI HPI f/u per Dr. Dent: Details: History of Present Illness The patient is a 63-year-old male presenting with knee and leg pain. He has a history of greater trochanteric pain syndrome and low back pain. Specific details of the onset, duration, or previous treatment efficacy for these conditions were not discussed in the conversation. Tendinopathy and peripheral GTB pain syndrome are also noted as contributing factors to his overall discomfort. The conversation highlights the need for continued evaluation and treatment, although specific aggravating or alleviating factors were not detailed. The trajectory of the patient's condition was not explicitly outlined. Pain Description - Onset and Timing: Not specified in the visit details - Quality and Character: Not explicitly discussed - Primary Location: Knee, greater trochanter region, and low back - Radiation: Not mentioned - Exacerbating Factors: Not detailed - Relieving Factors: Not detailed - Interference with Activities and Functions: Implied limitations, specific activities not mentioned Physical Exam - Musculoskeletal- Patient was positioned in left lateral position during the procedure for visualization of the right greater trochanteric region which was TTP. Results - Tests and Diagnostics: - Ultrasound: Linear ultrasound used to visualize the right greater trochanteric region. Pain Management - Affect: Not discussed - Analgesia: GTB injection discussed; no current medication regimen detailed - Adverse Effects: Not mentioned - Activities of Daily Living: Inferred impact on daily activities due to pain; specific functions not identified - Aberrant Drug Related Behaviors: Not mentioned Procedure - Greater Trochanteric Bursa Injection: - Informed consent was obtained. - Patient was positioned in the left lateral position. - A linear ultrasound was used to visualize the greater trochanteric area on the right side. - A 25g needle was advanced with ultrasound guidance. - Injection of 40 mg Kenalog mixed with 0.25% ropivacaine was administered. - No pain on injection; aspiration was negative. - Patient tolerated the procedure well and was discharged in stable condition. [facility] Medical History (Updated 07/02/24 @ 16:54 by Edgardo Dent MD) Helicobacter pylori (H. pylori) CAD (coronary artery disease) Back pain GERD (gastroesophageal reflux disease) Fatty liver Depression Numbness Habitual snoring SOB (shortness of breath) Elevated cholesterol HTN (hypertension) Chronic right-sided low back pain with right-sided sciatica Surgical History History of back surgery Hx of eye surgery Hx of hemorrhoidectomy History of lumbosacral spine surgery Social History Are you a primary hospice care sales consultant to a significant other at home: No Do you presently have visiting nurse or other home services: No Patient Tobacco Use Status: Current everyday Tobacco user Tobacco use type: Cigarette Cigarette Packs Per Day: 1.0 Cigarettes Per Day: 20.0 Years Smoked: 40 Physical Exam Vital Signs: Last Vital Signs Pulse 63 06/26/24 10:31 Resp 16 06/26/24 10:31 BP 123/61 06/26/24 10:31 Pulse Ox 97 06/26/24 10:31 Oxygen Delivery Method Room Air 06/26/24 10:31 BMI result Body Mass Index 29.4 Assessment & Plan Assessment & Plan (1) Pain of muscle of lower leg: Code(s): M79.18 - Myalgia, other site Category: Medical (2) Sacroiliac joint dysfunction: Code(s): M53.3 - Sacrococcygeal disorders, not elsewhere classified Category: Medical (3) Status post lumbar spine surgery for decompression of spinal cord: Code(s): Z98.890 - Other specified postprocedural states Category: Medical (4) Lumbar radiculopathy, chronic: Code(s): M54.16 - Radiculopathy, lumbar region Category: Medical (5) Greater trochanteric pain syndrome: Code(s): M25.559 - Pain in unspecified hip Category: Medical Plan Plan - Continue management of knee and leg pain, including further evaluation and interventions for greater trochanteric syndrome. - Supportive therapy for underlying tendinopathy and post-laminectomy pain syndrome, focusing on conservative approaches. - Pain management through suitable interventions, emphasizing methodology discussed during this visit. - Follow-up plan to further assess and address ongoing pain management needs. Patient was informed and verbally consented to the use of an ambient scribe for clinic note documentation during this visit. Discussion Notes I discussed with the patient the management options for his knee, leg, and associated pain conditions. We reviewed the procedure that was performed, including the greater trochanteric bursa injection, explaining the steps and anticipated outcomes. The patient consented to this approach, understanding the potential benefits and any associated risks. Additionally, we reviewed ongoing conservative management and the need for continued monitoring, agreeing on a follow-up schedule in the office to evaluate progress. Patient Instructions - Follow-up with the office as scheduled for reevaluation. - Continue any prescribed medications as discussed. - Engage in conservative management techniques as directed. - Report any changes in symptoms or concerns to the office promptly. - Follow any specific recommendations for home care or activity modifications as advised. Coding Level of Care Code Est Pt Level 4 (94876) Diagnoses Pain of muscle of lower leg M79.18 Sacroiliac joint dysfunction M53.3 Status post lumbar spine surgery for decompression of spinal cord Z98.890 Lumbar radiculopathy, chronic M54.16 Greater trochanteric pain syndrome M25.559
--- OUTSIDE RECORDS SUMMARY | 2024-06-26 12:04 | XMS_ITS | Clinical Summary ---
Author Organization [address] [facility] Address [address] [place] [address] Phone Care Team Providers Care Matchbook Assembler Name Role Phone EboniVilma Primary Care Provider [phone] Allergies No known active allergies Medications buPROPion SR (WELLBUTRIN SR) 150 mg 12 hr tablet Take 150 mg by mouth 2 times daily. 09/22/2021 Active calcium carbonate-vit D3-min 600 mg-10 mcg (400 unit) tablet Take 1 tablet by mouth 1 (one) time each day. 10/19/2021 Active fenofibrate (TRICOR) 145 mg tablet Take 1 tablet (145 mg total) by mouth 1 (one) time each day. 10/19/2021 Active montelukast (SINGULAIR) 10 mg tablet Take 1 tablet (10 mg total) by mouth at bedtime. 10/19/2021 Active rosuvastatin (CRESTOR) 5 mg tablet Take 5 mg by mouth daily. 10/19/2021 Active lactulose (Enulose) solution Take 15 mL (10 g total) by mouth 2 (two) times a day. 2700 mL 03/18/2024 Encounters Date Type Department Care Team Description 06/25/2024 7:00 AM EDT Ancillary Procedure [facility] [address] [facility] [address] [place] [address] Dyspnea on exertion; Palpitation; Diaphoresis from Last 3 Months Social History Tobacco Use Types Packs/Day Years Used Date Smoking Tobacco: Every Day Cigarettes Smokeless Tobacco: Never Alcohol Use Standard Drinks/Week Comments Never 0 (1 standard drink = 0.6 oz pur e alcohol) Sex and Gender Information Value Date Recorded Sex Assigned at Not on file Legal Sex Male 6:29 AM EST Gender Identity Not on file Sexual Orientation Not on file Obstetrics History Last Filed Vital Signs Vital Sign Reading Time Taken Comments Blood Pressure 130/70 06/25/2024 7:41 AM EDT Pulse 64 03/12/2024 3:02 PM EST Temperature - - Respiratory Rate - - Oxygen Saturation 98% 03/12/2024 3:02 PM EST Inhaled Oxygen Concentration - - Weight 92.5 kg (204 lb) 06/25/2024 7:41 AM EDT Height 180.3 cm (5' 11 ) 06/25/2024 7:41 AM EDT Body Mass Index 28.45 06/25/2024 7:41 AM EDT Plan of Treatment Health Maintenance Due Date Last Done Comments RSV Immunization Adult Patients (1 - Risk 60-74 years 1-dose series) 2019 HIV Screening 02/06/2022 Lung Cancer Screening (Low Dose CT) 02/06/2022 Social Influencers of Health Screening 02/06/2022 Depression Screening 01/18/2025 01/19/2024 Hypertension/CHF/CAD Annual BMP Blood Test 04/02/2025 04/02/2024 Colorectal Cancer Screening: FIT-DNA (Cologuard) 08/23/2026 08/24/2023 Cholesterol Screening (Lipid Panel) 04/02/2029 04/02/2024, 04/02/2024, 01/20/2024, Additional history exists DTaP,Tdap,and Td Vaccines (5 - Td or Tdap) 01/22/2034 01/23/2024, 03/25/2021, 11/28/2020, Additional history exists Varicella Vaccines Aged Out 11/18/2020 No longer eligible based on patient's age to complete this topic MMR Vaccines Aged Out 03/25/2021, 11/18/2020 No lo nger eligible based on patient's age to complete this topic Hepatitis C Screening Completed 03/26/2021 Hepatitis B Vaccines Completed 05/24/2021, 03/25/19 Zoster Vaccines Completed 12/03/2021, 0709/2021, 11/18/2020 COVID-19 Vaccine Completed 12/26/2023, 08/2023, 12/03/2021, Additional history exists Influenza Vaccine Completed 12/26/2023, , 12/03/2021, Additional history exists IPV Vaccines Completed 01/23/2024, 05/05, 11/28/2020 Pneumococcal Vaccine: 50+ Years Completed 04/02/2024 Pneumococcal Vaccine: Pediatrics (0 to 5 Years) and At-Risk Patients (6 to 64 Years) Completed 04/02/2024 HIB Vaccines Aged Out No longer eligi ble based on patient's age to complete this topic HPV Vaccines Aged Out No longer eligi ble based on patient's age to complete this topic Hepatitis A Vaccines Aged Out No long er eligible based on patient's age to complete this topic Meningococcal ACWY Vaccine Aged Out N o longer eligible based on patient's age to complete this topic Meningococcal B Vaccine Aged Out No l onger eligible based on patient's age to complete this topic RSV Immunization Patients Under 20 months Aged Out No longer eligible based on patient's age to complete this topic Insurance MEDICAID - [place] Care Teams Matchbook Assembler Relationship Specialty Start Date End Date Vilma Lyn FNP [address] [place] [address] PCP - General Internal Medicine 09/08/21
--- OUTSIDE RECORDS SUMMARY | 2024-06-26 12:05 | XMS_ITS | Clinical Summary ---
Author Organization [facility] Address [address] [place] [address] Care Team Providers Care Paving Block Cutter Name Role Phone Jenniffer Hampton PA-C Primary Care Provider Source Comments PLEASE NOTE, if this patient is a minor, it may be UNLAWFUL to discuss sensitive information that is contained in these records (such as FAMILY PLANNING, MENTAL HEALTH or SUBSTANCE ABUSE) with the minor patient's parent or other person without the patient's specific authorization.[facility] Allergies Active Allergy Reactions Criticality Noted Date Comments Metronidazole Anaphylaxis High 03/14/2023 Penicillins 03/25/2021 Medications capsaicin 0.025 % creamIndication s:Chronic midline low back pain with right-sided sciatica Apply topically 3 (three) times daily as needed for pain 60 g 2 05/25/19 22 Active ketorolac (ACULAR) 0.5 % ophthalmic solution PLEASE SEE ATTACHED FOR DETAILED DIRECTIONS 03/30/19 23 Active diclofenac sodium (VOLTAREN) 1 % gel Apply topically 2 (two) times daily as needed for pain 100 g 2 05/17/19 23 Active sucralfate (CARAFATE) 1 gram tabletIndicatio ns:Gastroesopha geal reflux disease without esophagitis Take 1 Tablet by mouth 2 (two) times daily 60 Tablet 2 05/17/19 23 Active sodium fluoride-pot nitrate 1.1-5 % pste USE FOR BRUSHING 2X A DAY 06/16/19 23 Active ibuprofen 800 mg tabletIndicatio ns:Viral upper respiratory tract infection TAKE 1 TABLET BY MOUTH 3 (THREE) TIMES DAILY NEEDED FOR PAIN OR HEADACHES 90 Tablet 09/24/19 23 Active sodium chloride (OCEAN) 0.65 % nasal sprayIndication s:Apneic episode,Snoring Place 1 [place] into the nostril(s) as needed for other reason (dryness) 44 mL 2 02/09/20 23 Active calcium carbonate-vitam in D3 600 mg-10 mcg (400 unit) tabletIndicatio ns:Routine general medical examination at a health care facility Take 1 Tablet by mouth once daily 90 Tablet 3 07/27/19 24 Active fluticasone (FLONASE) 50 mcg/actuation nasal sprayIndication s:Seasonal allergic rhinitis due to pollen INSTILL 1 SPRAY INTO EACH NOSTRIL EVERY DAY 32 mL 1 09/15/19 24 Active tamsulosin (FLOMAX) 0.4 mg 24 hr capsule Take 1 Capsule by mouth once daily 90 Capsule 1 10/13/19 24 Active dutasteride (AVODART) 0.5 mg capsule Take 1 Capsule by mouth once daily 90 Capsule 1 10/13/19 24 Active buPROPion SR (WELLBUTRIN SR) 100 mg 12 hr tablet TAKE 1 TABLET BY MOUTH TWICE A DAY 180 Tablet 01/10/20 24 Active polyethylene glycol, PEG, 3350 (GLYCOLAX) 17 gram/dose powder DISSOLVE 17 GRAMS IN 8 OZ OF FLUID LIQUID DRINK DAILY DIRECTED 510 g 1 01/19/20 24 Active acetaminophen (TYLENOL) 500 mg tablet Take 2 Tablets by mouth every 6 (six) hours as needed for pain 120 Tablet 04/02/19 25 Active budesonide-form oteroL (SYMBICORT) 160-4.5 mcg/actuation inhalerIndicati ons:Mild persistent asthma without complication ([facility]) INHALE 2 PUFFS INTO THE LUNGS TWICE A DAY 10.2 g 1 06/04/19 25 Active rosuvastatin (CRESTOR) 40 mg tabletIndicatio ns:Hypercholest erolemia Take 1 Tablet by mouth nightly at bedtime 90 Tablet 1 06/11/19 25 Active omega-3 acid ethyl esters (LOVAZA) 1 gram capsuleIndicati ons:Hypertrigly ceridemia Take 2 Capsules by mouth 2 (two) times daily 180 Capsule 3 06/11/19 25 Active losartan (COZAAR) 50 mg tabletIndicatio ns:Primary hypertension Take 1 Tablet by mouth once daily . New Rx 90 Tablet 1 06/11/19 25 Active loratadine (CLARITIN) 10 mg tabletIndicatio ns:Seasonal allergic rhinitis due to pollen Take 1 Tablet by mouth once daily as needed for allergies 90 Tablet 1 06/11/19 25 Active escitalopram oxalate (LEXAPRO) 5 mg tabletIndicatio ns:Mild major depression ([facility] V24) Take 1 Tablet by mouth once daily 90 Tablet 06/11/19 25 Active esomeprazole magnesium (NEXIUM) [address] capsuleIndicati ons:History of Helicobacter pylori infection Take 1 Capsule by mouth 2 (two) times a day 180 Capsule 1 06/11/19 25 Active varenicline tartrate (CHANTIX) 0.5 mg tabletIndicatio ns:Tobacco abuse Take 1 Tablet by mouth once daily for 3 days, THEN 1 Tablet 2 (two) times daily for 3 days, THEN 2 Tablets 2 (two) times daily for 84 days. Days 1 to 3: 0.5 mg once daily. Days 4 to 7: 0.5 mg twice daily. Maintenance (day 8 and later): 1 mg twice daily; Duration: Continue maintenance dose for at least 11 weeks (for a total of at least 12 weeks of treatment).. 345 Tablet 06/11/19 25 2024 Active omega-3 acid ethyl esters (LOVAZA) 1 gram capsuleIndicati ons:Hypertrigly ceridemia Take 2 Capsules by mouth 2 (two) times daily 180 Capsule 3 01/22/20 24 2024 Discontinued(R eorder (E-Cancel Not Sent)) esomeprazole magnesium (NEXIUM) [address] capsuleIndicati ons:History of Helicobacter pylori infection Take 1 Capsule by mouth 2 (two) times a day 180 Capsule 1 02/21/20 24 2024 Discontinued(R eorder (E-Cancel Not Sent)) rosuvastatin (CRESTOR) 40 mg tabletIndicatio ns:Hypercholest erolemia Take 1 Tablet by mouth once daily 90 Tablet 1 04/02/19 25 2024 Discontinued(R eorder (E-Cancel Not Sent)) losartan (COZAAR) 25 mg tabletIndicatio ns:Primary hypertension Take 1 Tablet by mouth once daily 90 Tablet 1 04/02/19 25 2024 Discontinued(T herapy completed/Not needed) loratadine (CLARITIN) 10 mg tabletIndicatio ns:Seasonal allergic rhinitis due to pollen Take 1 Tablet by mouth once daily as needed for allergies 90 Tablet 1 04/02/19 25 2024 Discontinued(R eorder (E-Cancel Not Sent)) escitalopram oxalate (LEXAPRO) 5 mg tabletIndicatio ns:Mild major depression ([facility] V24) Take 1 Tablet by mouth once daily 90 Tablet 04/02/19 25 2024 Discontinued(R eorder (E-Cancel Not Sent)) budesonide-form oteroL (SYMBICORT) 160-4.5 mcg/actuation inhalerIndicati ons:Mild persistent asthma without complication ([facility]) Inhale 2 Puffs into the lungs 2 (two) times daily 10.2 g 1 04/02/19 25 2024 Discontinued Active Problems Problem Noted Date Diagnosed Date Class 1 obesity due to exces s calories with serious comorbidity and body mass index (BMI) of 30.0 to 30.9 in adult 10/13/2023 Benign prostatic hyperplasia with urinary freque ncy 10/13/2023 Chondromalacia of right knee 07/27/2023 Overview (07/27/2023): 03/13/23 Eval at [facility]; rec'd Kenalog injection Primary hypertension 07/27/2023 Prediabetes 06/11/2023 ROCKY (obstructive sleep apnea) 03/21/2023 Overview (07/26/2023): HST 03/09/23 07/21/23 Eval Sleep Clinic; continue CPAP and f/u 1 year. Screening for lung cancer 02/28/2023 Overview (03/08/2024): 02/26/2024 - lung cancer screening - Impression: 1) LungRad Category: 2. Benign appearance or behavior. Nodules with very low likelihood of becoming clinically active cancer due to size or lack of growth. Continue annual screening with LDCT in 12 months. 2) No significant additional findings requiring further evaluation 02/22/23 LDCT LRADS-2, repeat 12 months Mild persistent asthma without complication ([facility]) 02/22/2023 Seasonal allergic rhinitis due to pollen 023 History of bradycardia 05/16/2022 Trigger finger of right thumb 05/16/2022 Positive QuantiFERON-TB Gold test 05/24/2021 Overview (05/16/2022): 07/20/21 Eval at TB clinic. Recommend repeat IGRA in 2 months to assess for false positive. 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 Focally advanced degenerative changes at L4-5 including a moderate to severe disc space narrowing and hypertrophic facet arthropathy resulting in bony foraminal narrowing. Similar but less severe changes are also seen at the L5-S1 level. 12/07/21 Eval at [facility]. Recommend that pt see Dr Suarez for injections. F/u with PCP regarding cardiac issues because he was scheduled to have L4-L5 disc surgery in [place] but surgery was aborted Due to bradycardia. Recommends cardiac eval. 12/15/22 L3-4 bilateral laminotomy, partial facetectomy and foraminotomy, right L4-5 laminotomy, partial facetectomy and foraminotomy. Dr Melissa at [facility] [place]. Tobacco abuse 03/25/2021 Resolved Problems Problem Noted Date Diagnosed Date Resolved Date Polyarthritis with positive rheumatoid factor ([facility]) 07/27/2023 07/27/2023 Encounters Date Type Department Care Team Description 06/10/2024 2:20 PM EDT Office Visit [facility] [address] [place] [phone] Jenniffer Hampton PA-C Dyspnea on exertion (Primary Dx); Palpitations; Hypercholesterolemia; Hypertriglyceridemia; Primary hypertension; Right calf pain; Seasonal allergic rhinitis due to pollen; Mild major depression ([facility] V24); Diaphoresis; History of Helicobacter pylori infection; Tobacco abuse 05/07/2024 1:00 PM EST Office Visit [address] [phone] Jesus Darden, RD Class 1 obesity due to excess calories with serious comorbidity and body mass index (BMI) of 31.0 to 31.9 in adult (Primary Dx) 04/02/2024 9:00 AM EST Office Visit [address] [phone] Jenniffer Hampton PA-C Fatigue, unspecified type (Primary Dx); Hypercholesterolemia; Primary hypertension; Seasonal allergic rhinitis due to pollen; Mild major depression ([facility]); Mild persistent asthma without complication; Tobacco abuse; Need for vaccination from Last 3 Months Immunizations Immunization Administration Dates Next Due Flu, Preservative Free 01/05/2023,12/03/2021, Hep B,adult,adjuvanted (HEPLISAV) 05/24/2021, IPV 01/23/2024,05/24/2021,11/28/2020 Influenza (FLUBLOK),recombinant,injectable,preservati ve Free 12/26/2023 MMR (MMR II/Priorix) 03/25/2021,11/18/2020 PFIZER COVID VACCINE, PURPLE CAP, 12+ 06/25/2021 ,12/22/2020,11/18/2020 PNEUMOCOCCAL CONJUGATE PCV 20 (Prevnar) 04/02/19 Pfizer COVID-19 (Comirnaty), Mrna, Lnp-s, Pf, Ugo-sucrose, 30 Mcg/0.3 Ml, 12yr+ 12/26/2023,06/10/2023 Pfizer-BioNTech COVID-19 Vac cine Bivalent, (WITT PFIZER-BIONTECH COVID-19 VACCINE BIVALENT, (WITT CAP 12/03/2021 TDAP 01/23/2024,11/28/2020 Td (adult), 5 Lf tetanus tox oid, preservative free 03/25/2021 Varicella, Live Vaccine 11/18/2020 ZOSTER VACCINE, RECOMBINANT (SHINGRIX) 2,09/09/2021 Family History Medical History Relation Name Comments No Known Problems Brother No Known Problems Daughter 1 No Known Problems Daughter 2 No Known Problems Daughter 3 No Known Problems Daughter 4 No Known Problems Daughter 5 No Known Problems Daughter 6 No Known Problems Father No Known Problems Mother No Known Problems Sister 1 No Known Problems Sister 2 No Known Problems Son 1 No Known Problems Son 2 No Known Problems Son 3 Cancer Neg Relation Name Status Comments Brother Alive Daughter 1 Alive Daughter 2 Alive Daughter 3 Alive Daughter 4 Alive Daughter 5 Alive Daughter 6 Alive Father Mother Sister 1 Alive Sister 2 Alive Son 1 Alive Son 2 Alive Son 3 Alive Social History Tobacco Use Types Packs/Day Years Used Date Smoking Tobacco: Every Day Cigarettes 1 41 Smokeless Tobacco: Never Comments:Started smoking age 19 Alcohol Use Standard Drinks/Week Comments Never 0 (1 standard drink = 0.6 oz pur e alcohol) Social Connections Answer Date Recorded Connectedness 0 11/20/2023 Financial Resource Strain Answer Date R ecorded Financial Resource Strain 0 2021 Stress Answer Date Recorded Stress 0 03/20/2021 Physical Activity Answer Date Recorded Physical Activity 0 03/20/2021 Food Insecurity Answer Date Recorded Food 0 11/30/2023 Transportation Needs Answer Date Record ed Transportation 0 03/20/2021 Housing Stability Answer Date Recorded Housing 0 03/20/2021 Safety and Environment Answer Date Rogelio rded Safety 0 03/20/2021 Utilities Answer Date Recorded Utilities 0 03/20/2021 Employment Answer Date Recorded Stress 0 11/20/2023 Sex and Gender Information Value Date Recorded Sex Assigned at Male 03/25/2021 12:29 PM PST Legal Sex Male 11:07 AM PST Gender Identity Male 03/25/2021 12:29 PM PST Sexual Orientation Straight 03/25/2021 12 :29 PM PST Last Filed Vital Signs Vital Sign Reading Time Taken Comments Blood Pressure 159/89 06/10/2024 1:55 PM EDT Pulse 63 06/10/2024 1:48 PM EDT Temperature 36.4 ??C (97.6 ??F) 01/19/2024 10:[address] Respiratory Rate 20 06/10/2024 1:48 PM EDT Oxygen Saturation 98% 06/10/2024 1:48 PM EDT Inhaled Oxygen Concentration - - Weight 92.5 kg (204 lb) 06/10/2024 1:48 PM EDT Height 172.7 cm (5' 8 ) 05/07/2024 1:11 PM EST Body Mass Index 31.02 05/07/2024 1:11 PM EST Plan of Treatment Upcoming Encounters Date Type Department Care Team (Late st Contact Info) Description 07/09/2024 9:00 AM EDT Office Visit [facility] [address] [place] [phone] Jenniffer Nicole LPN [phone] [place] [address] 07/19/2024 2:00 PM EDT Office Visit [facility] [address] [place] [phone] Jenniffer Hampton PA-C [address] [place] [address] 09/17/2024 11:00 AM EDT Office Visit [facility] [address] [place] [phone] Thierry Camarillo, RD [address] [place] [address] Health Maintenance Due Date Last Done Comments Anxiety Screening [address] Colonography 12/23/2004 Colonoscopy 12/23/2004 Flexible Sigmoidoscopy 12/23/2004 Depression Monitoring 04/20/2024 01/19/2024 , 06/10/2023, 02/08/2023, Additional history exists Dental Perio Charting 04/21/2024 04/19/2023 Annual Preventive Care Visit 07/26/2024 07/27/2023, 09/02/2021 FIT/gFOBT 08/23/2024 08/24/2023, 09/30/2021 Lung Cancer Screening 02/25/2025 02/26/2024 , 06/27/2023, 02/22/2023 Dental BW 03/21/2025 03/19/2024, 03/14/2023 Dental Examination 03/21/2025 03/19/2024, 04/19/2023 Dental Prophy 03/21/2025 03/19/2024, 03/17/2023 Diabetes Screening 04/02/2025 04/02/2024, 1 03/21/2023, 07/27/2023, Additional history exists Lipid Screening 04/02/2025 04/02/2024, 01/04, 07/27/2023, Additional history exists Tobacco Cessation Counseling (#1) 06/10/2025 04/02/2024, 02/08/2023, 09/02/2021, Additional history exists Colorectal Cancer Screening 08/23/2026 Fecal DNA 08/23/2026 08/24/2023 Dental FMX/Pano 03/16/2028 03/14/2023 Imm-DTaP/Tdap/Td (4 - Td or Tdap) 01/22/2034 01/23/2024, 03/25/2021, 11/28/2020 HIV Screening Completed 03/26/2021 Hepatitis B Screening Completed 03/26/2021 Hepatitis C Screening Completed 03/26/2021 Imm-Zoster, Recombinant Completed 12/03/2021, 09/09 [id number] Completed 12/26/2023, 04/0 08/2023, 12/03/2021, Additional history exists Imm-Influenza Completed 12/26/2023, 110 04/2022, 12/03/2021, Additional history exists Alcohol and Drug Screen Completed 04/02/19, 10/13/2023, 06/10/2023, Additional history exists Imm-Pneumococcal Completed 04/02/2024 Procedures Procedure Name Priority Date/Time Associated Diagnosis Comments B TYPE NATRIURETIC PEPTIDE (BNP) Routine 06/10/2024 3:01 PM EDT Dyspnea on exertion Palpitations Diaphoresis UPPER GI ENDOSCOPY (EGD) SCANNED DOCUMENT 05/02/2024 3:00 AM EST BLOOD COUNT COMPLETE AUTO&AUTO DIFRNTL WBC Routine 04/02/2024 10:36 AM EST Fatigue, unspecified type LIPID PANEL Routine 04/02/2024 10:36 AM EST Hypercholesterolemia Primary hypertension TSH W/RFLX FREE T4 Routine 04/02/2024 10 :36 AM EST Fatigue, unspecified type IRON, TIBC, FERRITIN PANEL Routine 04/02/2024 10:36 AM EST Fatigue, unspecified type COMPREHENSIVE METABOLIC PANEL Routine 04/02/2024 10:36 AM EST Hypercholesterolemia Primary hypertension Fatigue, unspecified type BITEWINGS - FOUR RADIOGRAPHIC IMAGES Routine 03/19/2024 11:00 AM EST Caries of dentin PROPHYLAXIS - ADULT Routine 03/19/2024 1 1:00 AM EST Caries of dentin PERIODIC ORAL EVALUATION ESTABLISHED PATIENT Routine 03/19/2024 11:00 AM EST Caries of dentin LUNG CANCER SCREENING (LOW DOSE CT OF CHEST) SCANNED DOCUMENT 02/26/2024 3:00 AM EST COLOGUARD Routine 08/24/2023 3:00 AM EDT Colon cancer screening Full INTRAORAL - COMP SERIES OF RADIOGRAPHIC IMAGES Routine 03/14/2023 9:00 AM EST Encounter for dental examination Caries of enamel (incipient) Defective dental quaker HIV 1/2 AG & AB W/RFLX (4TH GEN) Routine 03/26/2021 1:59 PM EST Refugee health examination HEPATITIS B SURFACE AG, EIA WITH REFLEX CONFIRM Routine 03/26/2021 1:59 PM EST Refugee health examination HEPATITIS C AB W/RFLX HCV RNA, QT, RT PCR Routine 03/26/2021 1:59 PM EST Refugee health examination from Last 3 Months or Most Recently Relevant to Health Maintenance Results * B TYPE NATRIURETIC PEPTIDE (BNP) (06/10/2024 3:01 PM EDT) B TYPE NATRIURETIC PEPTIDE (BNP) 9 <100 pg/mL [facility] Comment: BNP levels increase with age in the general population with the highest values seen in individuals greater than 75 years of age. Reference: J. Am. Shell. Cardiol. 2002; 40:976-982. Blood Blood / Unknown 06/10/2024 3 :01 PM EDT 06/10/2024 3:02 PM EDT Narrative [employer] [facility] - 06/11/2024 9:47 AM EDT FASTING:NO Jenniffer Hampton PA-C LAB - BLOOD DRAW Final Resu lt Performing Organization Address [facility] de Phone Number [facility] [address] [address], [facility] [address] [address] * UPPER GI ENDOSCOPY (EGD) SCANNED DOCUMENT (05/02/2024 3:00 AM EST) 05/02/2024 3:00 AM EST Jenniffer Hampton PA-C SCAN PROCEDURES Final Resul t * IRON, TIBC, FERRITIN PANEL (04/02/2024 10:36 AM EST) FERRITIN 45 24 - 380 ng/mL [facility] IRON, TOTAL 107 50 - 180 mcg/dL [facility] IRON BINDING CAPACITY 366 250 - 425 mcg/dL (calc) [facility] % SATURATION 29 20 - 48 % (calc) [facility] [place] C-[facility]ario Blood Blood / Unknown 04/02/2024 1 0:36 AM EST 04/02/2024 10:37 AM EST Narrative [employer] [facility] - 04/03/2024 3:56 AM EST FASTING:YES Jenniffer Hampton PA-C LAB - BLOOD DRAW Final Resu lt Performing Organization Address [facility]/ZIP Co de Phone Number [facility] [address] [address], [employer] [address] [address] * TSH W/RFLX FREE T4 (04/02/2024 10:36 AM EST) TSH W/REFLEX TO FT4 2.04 0.40 - 4.50 mIU/L [facility] Blood Blood / Unknown 04/02/2024 1 0:36 AM EST 04/02/2024 10:37 AM EST Narrative [employer] [facility] - 04/03/2024 3:56 AM EST FASTING:YES Jenniffer Hampton PA-C LAB - BLOOD DRAW Edited Res ult - Final [facility] [address] [address], [facility] [address] [place] [address] * BLOOD COUNT COMPLETE AUTO&AUTO DIFRNTL WBC (04/02/2024 10:36 AM EST) WHITE BLOOD CELL COUNT 5.8 3.8 - 10.8 Thousand/ uL [facility] RED BLOOD CELL COUNT 4.91 4.20 - 5.80 Million/u L [facility] HEMOGLOBIN 14.1 13.2 - 17.1 g/dL [facility] HEMATOCRIT 42.6 38.5 - 50.0 % [facility] MCV 86.8 80.0 - 100.0 fL [facility] MCH 28.7 27.0 - 33.0 pg [facility] MCHC 33.1 32.0 - 36.0 g/dL [facility] Comment: For adults, a slight decrease in the calculated MCHC value (in the range of 30 to 32 g/dL) is most likely not clinically significant; however, it should be interpreted with caution in correlation with other red cell parameters and the patient's clinical condition. RDW 13.9 11.0 - 15.0 % [facility] PLATELET COUNT 191 140 - 400 Thousand/ uL [facility] MPV 11.6 7.5 - 12.5 fL [facility] ABSOLUTE NEUTROPHILS 3,184 1,500 - 7,800 cells/uL [facility] ABSOLUTE LYMPHOCYTES 1,844 850 - 3,900 cells/uL [facility] ABSOLUTE MONOCYTES 389 200 - 950 cells/uL [facility] ABSOLUTE EOSINOPHILS 313 15 - 500 cells/uL [facility] ABSOLUTE BASOPHILS 70 0 - 200 cells/uL [facility] NEUTROPHILS PCT 54.9 % [facility] LYMPHOCYTES 31.8 % [facility] MONOCYTES 6.7 % [facility] EOSINOPHILS 5.4 % [facility] BASOPHILS 1.2 % [facility] Blood Blood / Unknown 04/02/2024 1 0:36 AM EST 04/02/2024 10:37 AM EST Narrative [facility] [employer] [facility] - 04/03/2024 3:56 AM EST FASTING:YES us Jenniffer Hampton PA-C LAB - BLOOD DRAW Edited Res ult - Final [facility] [address] [address], [facility] [address] [place] [address] * (ABNORMAL) LIPID PANEL (04/02/2024 10:36 AM EST) CHOLESTEROL, TOTAL 212(H) <200 mg/dL [facility] HDL CHOLESTEROL 30(L) > OR = 40 mg/dL [facility] TRIGLYCERIDES 300(H) <150 mg/dL [facility] Comment: If a non-fasting specimen was collected, consider repeat triglyceride testing on a fasting specimen if clinically indicated. Bharat et al. J. of Clin. Lipidol. 2015;9:129-169. LDL-CHOLESTEROL 139(H) 99 mg/dL (calc) [facility] Comment: Reference range: <100 Desirable range <100 mg/dL for primary prevention; ?? <70 mg/dL for patients with CHD or diabetic patients with > or = 2 CHD risk factors. LDL-C is now calculated using the Eliot-Jose calculation, which is a validated novel method providing better accuracy than the Friedewald equation in the estimation of LDL-C. Eliot DONNELLY et al. VAN. 2013;310(19): 7790-7166 (http://education.Oversi.Data Driven Delivery System/faq/RVO848) CHOL/HDLC RATIO 7.1(H) <5.0 (calc) [facility] NON-HDL CHOLESTEROL 182(H) <130 mg/dL (calc) [facility] Comment: For patients with diabetes plus 1 major ASCVD risk factor, treating to a non-HDL-C goal of <100 mg/dL (LDL-C of <70 mg/dL) is considered a therapeutic option. Blood Blood / Unknown 04/02/2024 1 0:36 AM EST 04/02/2024 10:37 AM EST Narrative [facility] - 04/03/2024 3:56 AM EST FASTING:YES Jenniffer Hampton PA-C LAB - BLOOD DRAW Final Resu lt [facility] [address] [address], [facility] [address] [place] [address] * COMPREHENSIVE METABOLIC PANEL (04/02/2024 10:36 AM EST) GLUCOSE 96 65 - 99 mg/dL [facility] Comment: ?Fasting reference interval UREA NITROGEN (BUN) 17 7 - 25 mg/dL [facility] CREATININE (blood) 1.07 0.70 - 1.35 mg/dL [facility] EGFR 77 > OR = 60 mL/min/1. 73m2 [facility] BUN/CREATININE RATIO SEE NOTE: [facility] Comment: ?? Not Reported: BUN and Creatinine are within ?? reference range. ? SODIUM 138 135 - 146 mmol/L [facility] POTASSIUM 4.3 3.5 - 5.3 mmol/L [facility] CHLORIDE 107 98 - 110 mmol/L [facility] CARBON DIOXIDE 25 20 - 32 mmol/L [facility] CALCIUM 9.4 8.6 - 10.3 mg/dL [facility] PROTEIN, TOTAL 6.6 6.1 - 8.1 g/dL [facility] ALBUMIN 4.6 3.6 - 5.1 g/dL [facility] GLOBULIN 2.0 1.9 - 3.7 g/dL (calc) [facility] ALBUMIN/GLOBULI N RATIO 2.3 1.0 - 2.5 (calc) [facility] BILIRUBIN, TOTAL 0.5 0.2 - 1.2 mg/dL [facility] ALKALINE PHOSPHATASE 64 35 - 144 U/L [facility] AST 13 10 - 35 U/L [facility] ALT 12 9 - 46 U/L [facility] Blood Blood / Unknown 04/02/2024 1 0:36 AM EST 04/02/2024 10:37 AM EST Narrative [facility] [employer] [facility] - 04/03/2024 3:56 AM EST FASTING:YES Jenniffer Hampton PA-C LAB - BLOOD DRAW Final Resu lt [facility] [address] [address], [facility] [address] [address] * LUNG CANCER SCREENING (LOW DOSE CT OF CHEST) SCANNED DOCUMENT (02/26/2024 3:00 AM EST) 02/26/2024 3:00 AM EST Jenniffer Hampton PA-C SCAN IMAGING Final Resul t * COLOGUARD (08/24/2023 3:00 AM EDT) Stool Stool specimen / Unknown 08/24/2023 3:00 AM EDT Mireya HOLLIS LAB - NO BLOOD DRAW Edite d Result - Final LoginRadius [address] [place] [address], [address] [facility] [id number] [place] [address], * HEPATITIS C AB W/RFLX HCV RNA, QT, RT PCR (03/26/2021 1:59 PM EST) HEPATITIS C ANTIBODY NON-REACT JACQUES NON-REACT JACQUES [facility] SIGNAL TO CUT-OFF 0.02 <1.00 TBi Connect Comment: HCV antibody was non-reactive. There is no laboratory evidence of HCV infection. In most cases, no further action is required. However, if recent HCV exposure is suspected, a test for HCV RNA (test code 69389) is suggested. For additional information please refer to http://education.Vittana/faq/HUG13n7 (This link is being provided for informational/ educational purposes only.) Blood Blood / Unknown 03/26/2021 1 :59 PM EST 03/26/2021 2:00 PM EST Donald Bar MD LAB - BLOOD DRAW Edited Resu lt - Final Performing Organization Address City/[facility]/ZIP Co de Phone Number Mobi [facility] [address] [address], [facility] [address] [address] * HIV 1/2 AG & AB W/RFLX (4TH GEN) (03/26/2021 1:59 PM EST) [facility] HIV AG/AB, 4TH GEN NON-REAC TIVE NON-REAC TIVE M[facility] Comment: HIV-1 antigen and HIV-1/HIV-2 antibodies were not detected. There is no laboratory evidence of HIV infection. PLEASE NOTE: This information has been disclosed to you from records whose confidentiality may be protected by state law. ??If your state requires such protection, then the state law prohibits you from making any further disclosure of the information without the specific written consent of the person to whom it pertains, or as otherwise permitted by law. A general authorization for the release of medical or other information is NOT sufficient for this purpose. ?? For additional information please refer to http://education.WISE s.r.l.Data Driven Delivery System/faq/TIL513 (This link is being provided for informational/ educational purposes only.) The performance of this assay has not been clinically validated in patients less than 2 years old. Blood Blood / Unknown 03/26/2021 1 :59 PM EST 03/26/2021 2:00 PM EST us Donald Bar MD LAB - BLOOD DRAW Final Resul t Performing Organization Address City/[facility]/ZIP Co de Phone Number Mobi [facility] [address] [address], [address] [address] [address] * HEPATITIS B SURFACE AG, EIA WITH REFLEX CONFIRM (03/26/2021 1:59 PM EST) HEPATITIS B SURFACE ANTIGEN NON-REACT JACQUES NON-REACT JACQUES [facility] Blood Blood / Unknown 03/26/2021 1 :59 PM EST 03/26/2021 2:00 PM EST us Donald Bar MD LAB - BLOOD DRAW Edited Resu lt - Final [facility] [address] [facility] [address] [place] [address], [facility] [address] [address] from Last 3 Months or Most Recently Relevant to Health Maintenance [place] [address] ACO Care Teams 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
--- OUTSIDE RECORDS SUMMARY | 2024-06-26 12:05 | XMS_ITS | Data Portability ---
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 Received a cortisone injection at the last visit for presumed chondromalacia patella causing the Cuevas cyst. He had benefit for roughly 4-6 weeks. He is recurred. Pain is present with standing and walking. Somewhat with twisting. Locates now somewhat to the medial aspect of the knee. Has tried a physician prescribed exercise program as well as anti-inflammatori es and Tylenol without benefit. Past Medical/Surgical History/Meds/Gerald rgies reviewed and charted. Physical Exam: afebrile, vital signs stable, in no apparent distress, oriented to person/place/time . Gait symmetric skin: intact, no erythema. right KNEE: [no redness, warmth, deformity] Effusion estimated 0cc. Range of Motion [0-130 degrees]. Strength [5/5 all muscle groups]. Brown [negative]. Pivot Shift [negative] Varus/Valgus/Post erior laxity testing: [ negative]. Joint Line Tenderness:medial ly as well as the lateral border of the patella mildly Josse? s : positive. Patellofemoral crepitus noted with active extension. Contralateral knee: [no deformity, no effusion, full motion, no laxity, no joint line tenderness]. New Studies: deferred Impression: Chondromalacia patella question medial meniscal tear given his minimal benefit from cortisone Plan: 1. in regards to his knee have recommended repeat injection today for temporary benefit. After reviewing risks and benefits and obtained verbal consent patient's right knee was injected with 1 cc of Kenalog 40 mg/cc and 4 cc Marcaine and 1/4%. He tolerated the procedure well. Postinjection precautions reviewed. We will recommend an MRI to further develop the extent of any medial meniscal tearing that may be present. Should this be positive we will recommend arthroscopy. Should this be negative recommend a formal course of physical therapy as well as a Genutrain knee sleeve. Continue with Tylenol and anti-inflammatori es as needed. Follow up with me in 2 weeks as scheduled. [email or web address] speech recognition ed special education teacher software was used to create portions of this document. An attempt at proofreading has been made to minimize errors. Please call for corrections. [email or web address] Not available 05/17/2023 15:05:33 Plan of Treatment Reminders Order Date Submit Date Provider Last Modified By Organization Details Last Modified Time Details Appointments None recorded. Lab None recorded. Referral physical therapist referral 2023 [email or web address] Not available 14:30:58 physical therapist referral - PT PF program 2023 [email or web address] Not available 14:30:59 Procedures None recorded. Surgeries None recorded. Imaging MRI, knee, w/o contrast - open MRI request 2023 [facility] ([facility]), [address] [place], [address], 10:48:20 Medication Orders Mobic 15 mg tablet 2023 [id number], [address] [facility], [place], [address], 13:19:50 Patient TargetsNo targets recorded. Patient InstructionsNo instructions recorded. Reason for Referral Physical Therapist Referral for Pain of knee region Referring Physician: Keith Hogan, Orthopedic Surgery, [id number] Encounter Date: 06/12/2023 Physical Therapist Referral for Pain of knee region PT PF program Referring Physician: Keith Hogan, Orthopedic Surgery, [id number] Encounter Date: 06/12/2023 Results Created Date Observation Date Name Description Value Unit Range Abnormal Flag Note LastModifiedBy Organization Detail LastModifiedTime 05/23/19 24 05/21/2023 MRI, knee, w/o contr ast Alessandrostgenet te MRI- [facility] Access ion Number : [id number] Jeffry olivia Name: Mary Armstrong Record Number : [id number] Date of : 1960 Date of Exam: 2023 Referr ing Physic myron: Keith [facility] [address], [address] [place] [address] Exam: MR Knee (C-) CPT 09916 - Right Room Descri ption: [facility] Verio 3.0T MRI right knee Histor y: Pain Findin gs: Medial menisc us is intact Latera l menisc us is intact Locula madai gangli on in the latera l gutter . Larges t locule measur es roughl y 1 x 0.9 x 1.3 cm image 23 series 3 The ACL and PCL are intact The MCL is intact The LCL comple x includ ing the biceps femori s, poplit eus and fibula r collat eral ligame nts are intact The medial and latera l patell ar retina cula are intact . Diffus e absenc e of patell ar apex cartil age at the superi or pole. Small patell ofemor al compar tment osteop hytes The extens or mechan ism is intact Small Cuevas' s cyst. Impres loraine: Advanc ed patell ar apex chondr omalac ia at the superi or pole. Small patell ofemor al osteop hytes. Locula madai gangli on in the latera l gutter . Small Cuevas' s cyst Electr onical ly Signed By: Darrel Choe [facility] ([facility]) [address], [place], [address], 06/02/2023 08:17:18 Result Notes None recorded. Procedures Surgical History Date Name Laterality Status Provider Name and Address Organization Details Recorded Time 06/12/2023 Sports Knee 4&1 completed Keith Hogan PA-C [address], [place], [address], [facility] 06/12/2023 12:51:24 05/17/2023 Sports Knee 4&1 completed Keith Hogan PA-C [address], [place], [address], [facility] 05/17/2023 15:02:39 Imaging Results Imaging Date Name Status LastModified by Organiz ation Details LastModified Time 05/21/2023 MRI, knee, w/o contrast completed [email or web address] [facility] ([facility]) [address], [place], [address], 06/02/2023 08:17:18 Procedure Notes None recorded. Medical Equipment None Reported. Allergies Allergen ID Allergen Name Allergen Category Reaction Reaction Severity Criticality Documentation Date Start Date Code Code System Note Provider Name and Address Organization Details Recorded Time 573241 Flagyl medicatio n Not available Not available Not available 06/12/2023 6 RxNorm [facility]IEL D[facility] 13:03:03 64518 Product containin g penicilli n (product) medicatio n Not available Not available Not available 05/08/20232022 30244 8001 SNOMED Not Available [facility] 12:33:10 Medications Name Sig Start Date Stop Date Status Note LastModified by Organization Details LastModified Time amoxicillin 500 mg capsule TAKE 2 TABLETS BY MOUTH 2 TIMES A DAY FOR 14 DAYS FOR H.PYORI active Not Available Not Available Not Available ibuprofen 800 mg tablet TAKE 1 TABLET BY MOUTH 3 (THREE) TIMES DAILY NEEDED FOR PAIN OR HEADACHES active Not Available Not Available No t Available meloxicam 15 mg tablet TAKE 1 TABLET BY MOUTH EVERY DAY FOR 30 DAYS 2023 active Not Available Not Available Not Avai lable sucralfate 1 gram tablet TAKE 1 TABLET BY MOUTH TWICE A DAY active Not Available Not Available No t Available tramadol 50 mg tablet TAKE 1 TABLET BY MOUTH EVERY DAY active Not Available Not Available No t Available acetaminophe n 500 mg tablet TAKE 2 TABLETS BY MOUTH EVERY 6 HOURS NEEDED FOR PAIN. active Not Available Not Available No t Available pantoprazole 20 mg tablet,delay ed release TAKE 1 TABLET BY MOUTH 2 TIMES A DAY FOR 14 DAYS active Not Available Not Available Not Available pantoprazole 40 mg tablet,delay ed release TAKE 1 TABLET BY MOUTH EVERY DAY BEFORE BREAKFAST active Not Available Not Available No t Available losartan 25 mg tablet TAKE 1 TABLET BY MOUTH EVERY DAY active Not Available Not Available No t Available gabapentin 300 mg capsule TAKE 1 CAPSULE BY MOUTH 3 TIMES A DAY active Not Available Not Available Not Available montelukast 10 mg tablet TAKE 1 TABLET BY MOUTH EVERYDAY AT BEDTIME active Not Available Not Available No t Available levofloxacin 500 mg tablet TAKE 1 TABLET BY MOUTH DAILY FOR 14 DAYS, DISCONTINUE IF TENDONITIS active Not Available Not Available N ot Available fluticasone propionate 50 mcg/actuatio n nasal spray,suspen loraine INSTILL 1 SPRAY INTO EACH NOSTRIL EVERY DAY active Not Available Not Available No t Available loratadine 10 mg tablet TAKE 1 TABLET BY MOUTH ONCE DAILY NEEDED FOR ALLERGIES active Not Available Not Available No t Available esomeprazole magnesium 20 mg capsule,vidal yed release TAKE 1 CAPSULE BY MOUTH EVERY DAY active Not Available Not Available No t Available oxycodone 5 mg tablet TAKE 1 TABLET BY MOUTH 2 TIMES A DAY active Not Available Not Available Not Available escitalopram 10 mg tablet TAKE 1 TABLET BY MOUTH EVERY DAY active Not Available Not Available No t Available rosuvastatin 5 mg tablet TAKE 1 TABLET BY MOUTH EVERY DAY active Not Available Not Available No t Available rosuvastatin 20 mg tablet TAKE 1 TABLET BY MOUTH EVERY DAY active Not Available Not Available No t Available Flovent HFA 110 mcg/actuatio n aerosol inhaler INHALE 1 PUFF INTO THE LUNGS TWICE A DAY active Not Available Not Available Not Available pregabalin 75 mg capsule TAKE 1 TABLET ORALLY BEDTIME active Not Available Not Available No t Available sodium fluoride 1.1 %-potassium nitrate 5 % dental paste USE FOR BRUSHING 2X A DAY active Not Available Not Available No t Available varenicline tartrate 0.5 mg (11)-1 mg (42) tablets in a dose pack TAKE DIRECTED active Not Available Not Available No t Available fenofibrate nanocrystall ized 145 mg tablet TAKE 1 TABLET BY MOUTH EVERY DAY active Not Available Not Available No t Available Symbicort 160 mcg-4.5 mcg/actuatio n HFA aerosol inhaler PLEASE SEE ATTACHED FOR DETAILED DIRECTIONS active Not Available Not Available N ot Available diclofenac 1 % topical gel APPLY TOPICALLY 2 (TWO) TIMES DAILY NEEDED FOR PAIN active Not Available Not Available No t Available Paxlovid 300 mg (150 mg x 2)-100 mg tablets in a dose pack TAKE 3 TABLETS BY MOUTH EVERY MORNING AND EVENING FOR 5 DAYS active Not Available Not Available No t Available Vitals Date Recorded Body height Body mass index (BMI) Body weight Provider Name and Address Organization Details Last Updated DateTime 05/17/2023 180.34 cm 26.5 kg/m2 13094.55 g ARMIN LARIOS [facility] 05/17/2023 14:43:36 Date Recorded Body height Body mass index (BMI) Body weight Provider Name and Address Organization Details Last Updated DateTime 06/12/2023 180.34 cm 28.5 kg/m2 31022.84 g EZEQUIEL MCKINNEYY [facility] 06/12/2023 13:02:29 Social History None recorded. Functional Status None recorded. Mental Status None recorded. Family History Nothing Reported. Medical History No medical history recorded. Past Encounters Encounter ID Performer Location Encounter Start Date Encounter Closed Date Diagnosis/Indication Diagnosis SNOMED-CT Code Diagnosis ICD10 Code Diagnosis Note [id number] [facility] [address] [place] [address] 05/17/2023 14:30:46 05/17/2023 15:19:07 Chondromalacia of right patella 2191330909 4031055 M22.41 Pain of ri ght knee region 8326397263 58366 M25.495 [id number] REGGIE Jasmine [address] [place] [address] 06/12/2023 12:52:10 07/03/2023 14:30:58 Osteoarthritis of right knee joint 2456828255 92393 M17.11 Pain of ri ght knee joint 2530275979 34738 M25.561 Pain of knee region 1003 974700 M25.569 Health Concerns Section Related Observation LastModified by Organization Detai ls LastModified Time None Recorded Concern Status LastModified by Organization Details LastModified Time None Recorded Advance Directives Directive None Recorded Payers Encounter Date Sequence Insurance Name Policy Number Policy Rivero Covered Member ID Rivero Member ID Guarantor Name 05/17/2023 1 [place] [facility] Mary Arechiga [id number] Mary Arechiga 06/12/2023 1 [place] [facility] Mary Arechiga [id number] Mary Arechiga Notes Date Note Type Note Provider Name and Address Organization Details Recorded Time 06/12/2023 text/html I am seeing the patient today under the supervision of {{Jordyn Contreras*} } who was available but who did not see the patient. Chief ComplaintThe patient presents today for recheck of {{left right*}} knee osteoarthritis. Is known to have knee arthritis treated conservatively to this point with {{1 2 3*}} months relief of symptoms. Presents today for recheck secondary to increased knee pain. Past Medical/Surgical HistoryReviewed today, otherwise unchanged per intake sheet. Physical Findings General Appearance:? ? ? Well developed. ? ? ? In no acute distress.Musculoskele arcadio System:Knee:General/b ilateral: ? ? ? No laxity of the knee.Right Knee: ? Medial aspect was tender on palpation. ? ? ? No erythema. ? ? ? No warmth.Left Knee: ? Medial aspect was tender on palpation. ? ? ? No erythema. ? ? ? No warmth.Musculoskeleta l Scales:General/bilate ral: ? Mild effusion noted.Neurological:? ? ? Oriented to time, place, and person.Gait And Stance: ? ? ? Normal.Psychiatric:? ? ? Mood was appropriate to the affect. Left knee 0-120 degrees of flexion with discomfort. Assessment? Osteoarthritis of knee - PlanMore than 50% of todays visit was spent on direct patient counseling regarding their knee condition and treatment options both operative with knee arthroplasty and non-operative, including oral medications and injection therapy. After discussion, my clinical decision was to go forth with an intra-articular cortisone injection. After explaining risks and benefits, under meticulous aseptic technique, the knee was injected with, 1cc of Kenalog 40mgs and 4 cc of Marcaine 1/4%. They tolerated the procedures well. Post injection precautions reviewed. Follow up with us in 3 months for further discussion of total knee replacement surgery versus continued conservative treatment. also recommend a course of physical therapy as well as a Genutrain knee sleeve for support. Have recommended meloxicam prescription is been sent. Keith Hogan PA-C [address] [place] [address] [address], [place], [address], [facility] 06/12/2023 17:05:10
--- OUTSIDE RECORDS SUMMARY | 2024-06-26 12:05 | XMS_ITS | Encounter Summary ---
Author Organization [facility] Address [address] [place] [address] Care Team Providers Care Research Instrumentation Technician Name Role Phone Vilma Lyn Primary Care Provider [phone] Reason for Visit * Imaging (Routine) - Authorized Specialty Diagnoses / Procedures Referred By Contac t Referred To Contact Cardiology Diagnoses Dyspnea on exertion Palpitation Diaphoresis Procedures Transthoracic echocardiogram (TTE) complete with PRN contrast, bubble, strain, and 3D order panel UT TTE W 2D IMAGE COMPLETE W DOPPLER ECHO & COLOR FLOW DOPPLER ECHO UT MARIO 2D COMPLETE W/CONTRAST OR W & WO CONTRAST WITH DOPPLER Jenniffer Hampton PA [address] [place] [address] Phone: tel: fax: [facility] Referral ID Status Reason Start Date Expiration Date V isits Requested Visits Authorized [id number] Authorized 06/21/2024 06/21/2025 1 1 Encounter Details Date Type Department Care Team (Latest Contact Info) Description 06/25/2024 7:00 AM EDT Ancillary Procedure [facility] [address] [place] [address] Dyspnea on exertion; Palpitation; Diaphoresis Social History Tobacco Use Types Packs/Day Years Used Date Smoking Tobacco: Every Day Cigarettes Smokeless Tobacco: Never Alcohol Use Standard Drinks/Week Comments Never 0 (1 standard drink = 0.6 oz pur e alcohol) Sex and Gender Information Value Date Recorded Sex Assigned at Not on file Legal Sex Male 6:29 AM EST Gender Identity Not on file Sexual Orientation Not on file documented as of this encounter Last Filed Vital Signs Vital Sign Reading Time Taken Comments Blood Pressure 130/70 06/25/2024 7:41 AM EDT Pulse - - Temperature - - Respiratory Rate - - Oxygen Saturation - - Inhaled Oxygen Concentration - - Weight 92.5 kg (204 lb) 06/25/2024 7:41 AM EDT Height 180.3 cm (5' 11 ) 06/25/2024 7:41 AM EDT Body Mass Index 28.45 06/25/2024 7:41 AM EDT documented in this encounter Plan of Treatment Pending Results Name Type Priority Associated Diagnoses Date/Time Transthoracic echocardiogram (TTE) complete with PRN contrast, bubble, strain, and 3D order panel Echocardiography Routine Dyspnea on exertion Palpitation Diaphoresis 06/25/2024 7:41 AM EDT documented as of this encounter Visit Diagnoses Diagnosis Dyspnea on exertion Other dyspnea and respiratory abnormality Palpitation Palpitations Diaphoresis Generalized hyperhidrosis documented in this encounter Care Teams Research Instrumentation Technician Relationship Specialty Start Date End Date Vilma Lyn FNP [address] [place] [phone] PCP - General Internal Medicine 09/08/21 documented as of this encounter
== END 2024-06-26 11:16 | disposition home or self-care (01) ==
LOC: HO.PMC 10:19
PROVIDERS: PCP Nurse Practitioner; Visit Provider Internal Medicine
DX: M79.18 Myalgia, other site (principal); M53.3 Sacrococcygeal disorders, not elsewhere classified; Z98.890 Other specified postprocedural states; M54.16 Radiculopathy, lumbar region; M25.551 Pain in right hip
CPT/HCPCS: 20611; 99214

== ENCOUNTER → 2024-06-26 10:19 | Outpatient (BNVA) | payer MEDICAID, SELFPAY | PROVIDERS: PCP Nurse Practitioner; Visit Provider Internal Medicine | DX: M25.551 Pain in right hip (principal); M79.18 Myalgia, other site; M53.3 Sacrococcygeal disorders, not elsewhere classified; M54.16 Radiculopathy, lumbar region; Z98.890 Other specified postprocedural states | CPT/HCPCS: 20611; 99212 ==